=== PATIENT | female | born 1995 | race Caucasian/White ===

== ENCOUNTER → 2022-09-20 10:05 | Outpatient (BNVA) | payer OTHER, SELFPAY | PROVIDERS: PCP Internal Medicine; Visit Provider Nurse Practitioner Family | DX: R51.9 Headache, unspecified (principal); R55 Syncope and collapse; M54.9 Dorsalgia, unspecified; M54.2 Cervicalgia | CPT/HCPCS: 99202 ==

== ENCOUNTER 2023-07-01 15:35 | Outpatient (AMB) | payer OTHER, SELFPAY ==
--- NOTE | 2023-07-01 15:45 | MHC.OFFVIS ---
Intake Vital Signs 07/01/23 15:49 Height 5 ft 2 in Weight 138 lb 6 oz BMI 25.3 BP 102/74 Blood Pressure Location Lt brachial Position Sitting Pulse 85 Pulse Source Pulse Oximeter Pulse Oximetry (%) 100 Oxygen Delivery Method Room Air Intake Visit Reasons: follow up Intake Note: Patient presents for f/u. stills gets headaches x4 a week, feels pressure on back of her head Allergies shellfish derived Allergy (Severe, Verified 07/01/23 15:48) Shortness of Breath pumpkin Allergy (Unknown, Verified 07/01/23 15:48) Unknown lobster Allergy (Unknown, Uncoded 09/20/22 10:21) Hives HPI HPI Comments History of Present Illness Details 27 y/o female presents for follow up of migraine. Pt reports intermittent occipital pressure headache, she can have the headache 4-5 times a week, and some days it lasts all day. These headaches felt like a headband headache- pressure especially with bending over. She gets motion sickness when she massage her back of head. She had episodes of her vision becoming blurry and wavy, it happens right before having headache. She noticed that [place] blinking light was bothersome, and it triggers the headache. An also she gets headache, if she does not drink coffee in the morning too. She uses takes Tylenol, 1000 mg 1-2 times a week to manage the headache. Physical therapy ordered for headache, neck and shoulder muscle tightness, but she has not started PT yet. [facility] Medical History (Updated 09/20/22 @ 11:42 by STACEY Serrato) History of COVID-19 Crohn's disease HELLP syndrome Gestational diabetes Surgical History History of removal of skin mole Family History Mother Asthma Other mast cell activation disorder Maternal Grandfather Cancer of blood vessel Brother Asthma Maternal Aunt Breast cancer Maternal Uncle Leukemia Paternal Grandmother Lung cancer Social History Alcohol intake: current Alcohol intake frequency: holidays/special occasions only Patient Tobacco Use Status: Never used Tobacco Review of Systems Const All systems reviewed & are unremarkable except as noted in HPI and below Physical Exam Vital Signs: Last Vital Signs Pulse 85 07/01/23 15:49 BP 102/74 07/01/23 15:49 Pulse Ox 100 07/01/23 15:49 Oxygen Delivery Method Room Air 07/01/23 15:49 BMI result Body Mass Index 25.3 Const Orientation/consciousness: patient oriented x3 HEENT Other: No palpable scalp tenderness. Head: Yes normocephalic Resp Effort & Inspection: normal respiratory effort and able to speak in complete sentences Back/Spine/Pelvis Other: Bilateral posterior cervical tightness. Left upper back tenderness. Cervical ROM: full Left Spurling: normal Right Spurling: normal. Neuro General: patient oriented x3 Cranial nerves: Yes CN's II-XII intact bilaterally Cognition (Neuro): normal cognition Gait exam (Neuro): Normal gait present Motor exam (neuro): 5/5 motor strength present throughout and Pronator motor function not present Deep tendon reflexes (DTR's): Right triceps reflex intensity grade: 2+, Left triceps reflex intensity grade: 2+, Rt Biceps (C5, C6): 2+, Left biceps reflex intensity grade: 2+, Right brachioradialis reflex intensity grade: 2+, Left brachioradialis reflex intensity grade: 2+, Right patellar reflex intensity grade: 2+ and Left patellar reflex intensity grade: 2+ Coordination: slzcin-[id number] test normal, rgeg-ig-fsli test normal, tandem gait normal and Romberg test negative Pupils: Normal pupillary reactivity/response: bilateral Psych Mental Status: mental status grossly normal Speech and movement: Normal speech and movement present Affect: normal affect Attitude: cooperative Thought process: Normal thought process present Assessment & Plan Assessment & Plan (1) Headache: Comment: TTH versus migrainous headache- ? triggered by EBV infection and dehydration. Code(s): R51.9 - Headache, unspecified (2) Neck pain: Code(s): M54.2 - Cervicalgia Plan Advised patient to start physical therapy. Physical therapy order printed out and handed to patient. Try magnesium glycinate 400 mg qHS and riboflavin 400 mg qAM for migraine prevention. Advised patient to track migraine frequency and intensity. Orders: Orders PT Evaluation and Treatment 07/01/23 M54.2 - Cervicalgia, R51.9 - Headache, unspecified Medications: New riboflavin (vitamin B2) 400 mg PO DAILY 30 days 30 tabs 6RF Coding Level of Care Code Est Pt Level 3 (89882) Diagnoses Headache R51.9 Neck pain M54.2
[2023-07-01 15:49] VITALS: BP 102/74; PULSE 85; O2SAT 100; BMI 25.3
== END 2023-07-01 16:09 | disposition home or self-care (01) ==
PROVIDERS: Absent Provider Nurse Practitioner Family; PCP Internal Medicine; Visit Provider Nurse Practitioner Family
DX: R51.9 Headache, unspecified (principal); M54.2 Cervicalgia
CPT/HCPCS: 99213

== ENCOUNTER → 2023-07-01 15:35 | Outpatient (BNVA) | payer OTHER, SELFPAY | PROVIDERS: Absent Provider Nurse Practitioner Family; PCP Internal Medicine; Visit Provider Nurse Practitioner Family | DX: R51.9 Headache, unspecified (principal); M54.2 Cervicalgia | CPT/HCPCS: 99212 ==

== ENCOUNTER 2024-05-15 11:04 | Emergency (ER) | payer OTHER, SELFPAY ==
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
[2024-05-15 11:05] VITALS: BP 113/63; PULSE 79; RESP 16; TEMP 36.4; O2SAT 99; BMI 24.2
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
[2024-05-15 13:44] VITALS: BP 110/70; PULSE 61; RESP 12; TEMP 36.7; O2SAT 100
[2024-05-15 13:45] VITALS: BP 110/70; PULSE 61; RESP 12; TEMP 36.7; O2SAT 100
== END 2024-05-15 13:45 | disposition home or self-care (01) ==
PROVIDERS: Emergency Provider Student in an Organized Health Care Education/Training Program
DX: S13.4XXA Sprain of ligaments of cervical spine, initial encounter (principal); M54.2 Cervicalgia; R51.9 Headache, unspecified; V43.52XA Car driver injured in collision with other type car in traffic accident, initial encounter; Y93.89 Activity, other specified; Y92.488 Other paved roadways as the place of occurrence of the external cause; Y99.8 Other external cause status
CPT/HCPCS: 70450; 72125; 99282; 99284

== ENCOUNTER 2024-08-28 10:15 | Outpatient (AMB) | payer OTHER, SELFPAY ==
[2024-08-28 10:16] VITALS: BMI 24.2
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
--- OUTSIDE RECORDS SUMMARY | 2024-08-28 12:04 | XMS_ITS | Encounter Summary ---
Author Organization [facility] Address [address] [place] [address] Phone Care Team Providers Care Sign Builder Supervisor Name Role Phone Marcela Neal DO Primary Care Provider [phone] Encounter Details Date Type Department Care Team (Late st Contact Info) Description 05/14/2013 Documentation [facility] [place] [address] [place] [address] Family Medicine, Physician [address] [place], [place] [phone] Social History Tobacco Use Types Packs/Day Years Used Date Smoking Tobacco: Never Assessed Comments Unknown Sex and Gender Information Value Date Recorded Sex Assigned at Not on file Legal Sex Female 5:17 PM EDT Gender Identity Not on file Sexual Orientation Not on file documented as of this encounter Plan of Treatment Not on file documented as of this encounter Visit Diagnoses Not on filedocumented in this encounter Care Teams Sign Builder Supervisor Relationship Specialty Start Date End Date Marcela Neal DO [address] [place] [address] PCP - General 12/31/16 08/04/22 documented as of this encounter
--- OUTSIDE RECORDS SUMMARY | 2024-08-28 12:04 | XMS_ITS | Encounter Summary ---
Author Organization [facility] Address [address] [place] [address] Phone Care Team Providers Care Aeronautical Drafter Name Role Phone Marcela Neal DO Primary Care Provider [phone] Encounter Details Date Type Department Care Team (Late st Contact Info) Description 04/30/2013 Documentation [facility] [place] [address] [place] [address] Family Medicine, Physician [address] [place], [place] [phone] Social History Tobacco Use Types Packs/Day Years [...] on filedocumented in this encounter Care Teams Aeronautical Drafter Relationship Specialty Start Date End Date Marcela Neal DO [address] [place] [address] PCP - General 12/31/16 08/04/22 documented as of this encounter
--- OUTSIDE RECORDS SUMMARY | 2024-08-28 12:04 | XMS_ITS | Encounter Summary ---
Author Organization [facility] Address [address] [place] [address] Phone Care Team Providers Care Field Clinical Engineer Name Role Phone Marcela Neal DO Primary Care Provider [phone] Encounter Details Date Type Department Care Team (Late st Contact Info) Description 03/21/2013 Documentation [facility] [place] [address] [place] [address] Family Medicine, Physician [address] [place], [place] [phone] Social History Tobacco Use Types Packs/Day Years [...] on filedocumented in this encounter Care Teams Field Clinical Engineer Relationship Specialty Start Date End Date Marcela Neal DO [address] [place] [address] PCP - General 12/31/16 08/04/22 documented as of this encounter
--- OUTSIDE RECORDS SUMMARY | 2024-08-28 12:04 | XMS_ITS | Clinical Summary ---
Author Organization [facility] Address [address] [place] [address] Care Team Providers Care Core Drill Operator Helper Name Role Phone Luca Nguyen MD Primary Care Pr ovider Allergies Active Allergy Reactions Criticality Noted Date Comments Medroxyprogesterone Acetate 02/29/20 23 Pumpkin Flavoring Agent (Non-Screening) 02/28/2023 Medications No known medications Active Problems No known active problems Family History Medical History Relation Name Comments Cancer Maternal Grandfather Cancer Paternal Grandmother Relation Name Status Comments Maternal Grandfather Paternal Grandmother Social History Tobacco Use Types Packs/Day Years Used Date Smoking Tobacco: Never Smokeless Tobacco: Never Tobacco Cessation:Counseling Given: Not Answered Alcohol Use Standard Drinks/Week Comments Yes 0 (1 standard drink = 0.6 oz pur e alcohol) SOCIAL Sex and Gender Information Value Date Recorded Sex Assigned at Not on file Gender Identity Not on file Sexual Orientation Not on file Job Start Date Occupation Industry Not on file Not on file Not on file Last Filed Vital Signs Vital Sign Reading Time Taken Comments Blood Pressure 107/73 02/28/2023 3:11 PM EDT Pulse 60 02/28/2023 3:11 PM EDT Temperature 37.1 ??C (98.7 ??F) 02/28/2023 3:11 PM ED T Respiratory Rate - - Oxygen Saturation 100% 02/28/2023 3:11 PM EDT Inhaled Oxygen Concentration - - Weight 63.1 kg (139 lb 3.2 oz) 02/28/2023 3:11 P M EDT Height 157.5 cm (5' 2 ) 02/28/2023 3:11 PM EDT Body Mass Index 25.46 02/28/2023 3:11 PM EDT Plan of Treatment Health Maintenance Due Date Last Done Comments Hepatitis C Screening 1995 Hepatitis B Vaccines (3 of 3 - 3-dose series) 09/18/1996 07/24/1996, 02/20/1996 Depression Screening 2007 Preventative Health Evaluation 12/18/2013 Cervical Cancer Screening (Pap Smear) 12/18/2016 COVID-19 Vaccine ( season) 2024 06/20/2021, 05/30/2021 Influenza Vaccine (#1) 2024 6, 04/07/2016, 03/26/2004, Additional history exists DTap / Tdap / Td (9 - Td or Tdap) 02/05/2029 02/05/2019, 11/04/2015, 01/31/2008, Additional history exists Pneumococcal Vaccine Aged Out No long er eligible based on patient's age to complete this topic RSV Ped < 20 months Aged Out No longe r eligible based on patient's age to complete this topic Care Teams Core Drill Operator Helper Relationship Specialty Start Date End Date Luca Nguyen MD [address] [place] [address] PCP - General 12/24/22
--- OUTSIDE RECORDS SUMMARY | 2024-08-28 12:04 | XMS_ITS | Encounter Summary ---
Author Organization [facility] Address [address] [place] [address] Phone Care Team Providers Care Industrial Engineering Intern Name Role Phone Marcela Neal DO Primary Care Provider [phone] Encounter Details Date Type Department Care Team (Late st Contact Info) Description 09/25/2013 Documentation [facility] [place] [address] [place] [address] Family Medicine, Physician [address] [place], [place] [phone] Social History Tobacco Use Types Packs/Day Years [...] on filedocumented in this encounter Care Teams Industrial Engineering Intern Relationship Specialty Start Date End Date Marcela Neal DO [address] [place] [address] PCP - General 12/31/16 08/04/22 documented as of this encounter
--- OUTSIDE RECORDS SUMMARY | 2024-08-28 12:04 | XMS_ITS | Encounter Summary ---
Author Organization [facility] Address [address] [place] [address] Phone Care Team Providers Care Judicial Clerk Name Role Phone Marcela Neal DO Primary Care Provider [phone] Encounter Details Date Type Department Care Team (Late st Contact Info) Description 11/16/2011 Documentation [facility] [place] [address] [place] [address] Family Medicine, Physician [address] [place], [place] [phone] Social History Tobacco Use Types Packs/Day Years [...] on filedocumented in this encounter Care Teams Judicial Clerk Relationship Specialty Start Date End Date Marcela Neal DO [address] [place] [address] PCP - General 12/31/16 08/04/22 documented as of this encounter
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
--- OUTSIDE RECORDS SUMMARY | 2024-08-28 12:04 | XMS_ITS | Encounter Summary ---
Author Organization [facility] Address [address] [place] [address] Phone Care Team Providers Care Data Architect Name Role Phone Marcela Neal DO Primary Care Provider [phone] Encounter Details Date Type Department Care Team (Late st Contact Info) Description 06/20/2013 Documentation [facility] [place] [address] [place] [address] Family Medicine, Physician [address] [place], [place] [phone] Social History Tobacco Use Types Packs/Day Years [...] on filedocumented in this encounter Care Teams Data Architect Relationship Specialty Start Date End Date Marcela Neal DO [address] [place] [address] PCP - General 12/31/16 08/04/22 documented as of this encounter
--- OUTSIDE RECORDS SUMMARY | 2024-08-28 12:04 | XMS_ITS | Encounter Summary ---
Author Organization [facility] Address [address] [place] [address] Phone Care Team Providers Care Yield Analyst Name Role Phone Marcela Neal DO Primary Care Provider [phone] Encounter Details Date Type Department Care Team (Late st Contact Info) Description 06/20/2013 Documentation [facility] [place] [address] [place] [address] Family Medicine, Physician [address] [place], [place] [phone] Social History Tobacco Use Types Packs/Day Years [...] on filedocumented in this encounter Care Teams Yield Analyst Relationship Specialty Start Date End Date Marcela Neal DO [address] [place] [address] PCP - General 12/31/16 08/04/22 documented as of this encounter
--- OUTSIDE RECORDS SUMMARY | 2024-08-28 12:04 | XMS_ITS | Encounter Summary ---
Author Organization [facility] Address [address] [place] [address] Phone Care Team Providers Care Employment Specialist/Program Manager Name Role Phone Marcela Neal DO Primary Care Provider [phone] Encounter Details Date Type Department Care Team (Late st Contact Info) Description 08/28/2012 Documentation [facility] [place] Family Medicine [address] [place] [address] Family Medicine, Physician [address] [place], [place] [phone] Social History Tobacco Use Types Packs/Day Years [...] on filedocumented in this encounter Care Teams Employment Specialist/Program Manager Relationship Specialty Start Date End Date Marcela Neal DO [address] [place] [address] PCP - General 12/31/16 08/04/22 documented as of this encounter
--- OUTSIDE RECORDS SUMMARY | 2024-08-28 12:04 | XMS_ITS | Clinical Summary ---
Author Organization [facility] Address [address] [place] [address] Phone Care Team Providers Care Button Tacker Name Role Phone Unavailable Primary Care Provider Unavailabl e Immunizations Immunization Administration Dates Next Due DTP 05/31/1997, 7,04/30/1996,02/19 DTaP 5 12/21/1999 HPV, Quadrivalent 03/05/2011,05/20/2010,02/28/20 10 Hep A, Adult 05/05/2015 Hep A, ped/adol 05/01/2014 Hep B, ped/adol 07/24/1996,02/20/1996 Hib (PRP-T) 05/31/1997, 7,04/30/1996,02/19 IPV 12/21/1999 Influenza, injectable, quadr ivalent, preservative free 04/07/2016 Influenza, injectable, trivalent 03/26/2004,04/22,04/09/2002 MMR 12/21/1999,01/10/1997 Meningococcal Conj (Menactra) MCV4P 05/01/2014,0 01/31/2008 OPV 07/24/1996,04/30/1996,02/20/1996 Td (adult) (Tenivac), 5 Lf t etanus toxoid, PF, adsorbed 11/04/2015 Tdap 01/31/2008 Varicella 05/23/1996 Family History Relation Name Status Comments Brother Alive Brother: Alive and well Father Father: Headach e,cluster Mother Mother: Asthma, Allergies Other No family histo ry of *Thrombophilia Social History Tobacco Use Types Packs/Day Years Used Date Smoking Tobacco: Never Comments:Never smoker Comments Unknown Sex and Gender Information Value Date Recorded Sex Assigned at Not on file Legal Sex Female 5:17 PM EDT Gender Identity Not on file Sexual Orientation Not on file Last Filed Vital Signs Vital Sign Reading Time Taken Comments Blood Pressure 106/62 10/26/2016 12:00 AM EDT Pulse 75 06/02/2016 12:00 AM EST Temperature 37 ??C (98.6 ??F) 10/28/2016 12:00 AM EDT Respiratory Rate - - Oxygen Saturation - - Inhaled Oxygen Concentration - - Weight 54.4 kg (120 lb) 10/28/2016 12:00 AM EDT Height 159.4 cm (5' 2.75 ) 06/02/2016 12:[address] Body Mass Index 21.43 06/02/2016 12:00 AM EST Plan of Treatment Health Maintenance Due Date Last Done Comments Hepatitis B Vaccines (3 of 3 - 3-dose series) 09/18/1996 07/24/1996, 02/20/1996 Varicella Vaccines (1 of 2 - 13+ 2-dose series) 12/18/2008 05/23/1996 Influenza Vaccines (#1) 2023 04/07/20 16, 03/26/2004, 05/09/2002, Additional history exists COVID-19 Vaccine (2023- season) 2024 DTaP,Tdap,and Td Vaccines (8 - Td or Tdap) 11/03/2025 11/04/2015, 01/31/2008, 12/21/1999, Additional history exists HIB Vaccines Completed 05/31/1997, 08/1996, 04/30/1996, Additional history exists IPV Vaccines Completed 12/21/1999, 08/1996, 04/30/1996, Additional history exists MMR Vaccines Completed 12/21/1999, 01/10/1997 HPV Vaccines Completed 03/05/2011, 04/23, 02/27/2010 Meningococcal Vaccine Completed 05/01/2014, 008 Hepatitis A Vaccines Completed 05/05/2015, 05/01/20 14 Men B Vaccine Aged Out No longer elig ible based on patient's age to complete this topic Pneumococcal Vaccine Aged Out No long er eligible based on patient's age to complete this topic Procedures * Due to [place] state law, this organization might not be sharing sensitive test results. Procedure Name Priority Date/Time Associated Diagnosis Comments CHLAMYDIA AND GONORRHEA, AMPLIFIED Routine 06/03/2016 2:05 PM EST from Last 3 Months or Most Recently Relevant to Health Maintenance Results * Due to [place] state law, this organization might not be sharing sensitive test results. * Chlamydia and Gonorrhoea, Amplified (06/03/2016 2:05 PM EST) URINE CHLAMYDIA AMP PROBE NEGATIVE [facility] Comment: No Chlamydia Trachomatis RNA detected in this patient's sample (REFERENCE RANGE/NORMAL VALUE: NOT DETECTED) URINE GC AMP PROBE NEGATIVE [facility] Comment: No Neisseria Gonorrhoeae RNA detected in this patient's sample (REFERENCE RANGE/NORMAL VALUE: NOT DETECTED) NOTE: This test uses network program manager-mediated amplification method to detect rRNA from C.Trachomatis and N.Gonorrhoeae. A negative result does not preclude infection. In the case of a negative urine result, testing of an endocervical(female) or urethral(male) specimen is recommended if there is high clinical suspicion of infection. The performance characteristics of this test have not been evaluated in children. The Aptima Combo2 assay is not intended for the evaluation of suspected sexual abuse or for other medico-legal indications. The ordering provider should assess if the patient had consensual sex without risk of sexual abuse. Consult the [facility] if needed. Contact phone number . Therapeutic failure or success cannot be determined with the Aptima Combo2 assay since nucleic acid may persist following appropriate antimicrobial therapy. The Centers for Disease Control and Prevention (CDC) recommends confirmatory retesting using culture or a different nucleic acid amplification test when positive results occur, if indicated. Testing performed or reported by [facility], a Service of [facility], [facility] [place] [address] CLIA ??[id number] Francis Mendez MD, PhD, Ram Press Operator 06/03/2016 2:05 PM EST Narrative [facility] - 06/03/2016 2:05 PM EST URINE CHLAMYDIA GC AMP PROBE us Marcela Neal DO LAB MICROBIOLOGY - GENERAL ORDER MARSHAL Final Result [facility] [address] [place] [address], from Last 3 Months or Most Recently Relevant to Health Maintenance Insurance [facility]
--- OUTSIDE RECORDS SUMMARY | 2024-08-28 12:04 | XMS_ITS | Encounter Summary ---
Author Organization [facility] Address [address] [place] [address] Phone Care Team Providers Care Employment Case Manager Name Role Phone Marcela Neal DO Primary Care Provider [phone] Encounter Details Date Type Department Care Team (Late st Contact Info) Description 01/06/2017 Conversion Encounter [facility] [address] [place] [address] Social History Tobacco Use Types Packs/Day Years [...] filedocumented in this encounter Care Teams Employment Case Manager Relationship Specialty Start Date End Date Marcela Neal DO [address] [place] [address] PCP - General 12/31/16 08/04/22 documented as of this encounter
--- OUTSIDE RECORDS SUMMARY | 2024-08-28 12:04 | XMS_ITS | Encounter Summary ---
Author Organization [facility] Address [address] [place] [address] Phone Care Team Providers Care Research Chief Engineer Name Role Phone Marcela Neal DO Primary Care Provider [phone] Encounter Details Date Type Department Care Team (Late st Contact Info) Description 09/21/2013 Documentation [facility] [place] Family Medicine [address] [place] [address] Family Medicine, Physician [address] [place], [place] [phone] Social History Tobacco Use Types Packs/Day Years [...] on filedocumented in this encounter Care Teams Research Chief Engineer Relationship Specialty Start Date End Date Marcela Neal DO [address] [place] [address] PCP - General 12/31/16 08/04/22 documented as of this encounter
--- OUTSIDE RECORDS SUMMARY | 2024-08-28 12:04 | XMS_ITS | Encounter Summary ---
Author Organization [facility] Address [address] [place] [address] Phone Care Team Providers Care Svp Innovation Partnerships Name Role Phone Marcela Neal DO Primary Care Provider [phone] Encounter Details Date Type Department Care Team (Late st Contact Info) Description 03/27/2013 Documentation [facility] [place] [address] [place] [address] Family Medicine, Physician [address] [place], [place] [phone] Social History Tobacco Use Types Packs/Day Years [...] on filedocumented in this encounter Care Teams [employer] Relationship Specialty Start Date End Date Marcela Neal DO [address] [place] [phone] PCP - General 12/31/16 08/04/22 documented as of this encounter
--- OUTSIDE RECORDS SUMMARY | 2024-08-28 12:04 | XMS_ITS | Encounter Summary ---
Author Organization [facility] Address [address] [place] [address] Phone Care Team Providers Care Medical Videographer Name Role Phone Marcela Neal DO Primary Care Provider [phone] Encounter Details Date Type Department Care Team (Late st Contact Info) Description 06/30/2015 Documentation [facility] [place] [address] [place] [address] Family Medicine, Physician [address] [place], [place] [phone] Social History Tobacco Use Types Packs/Day Years [...] on filedocumented in this encounter Care Teams Medical Videographer Relationship Specialty Start Date End Date Marcela Neal DO [address] [place] [address] PCP - General 12/31/16 08/04/22 documented as of this encounter
--- OUTSIDE RECORDS SUMMARY | 2024-08-28 12:04 | XMS_ITS | Encounter Summary ---
Author Organization [facility] Address [address] [place] [address] Phone Care Team Providers Care Building Energy Consultant Name Role Phone Marcela Neal DO Primary Care Provider [phone] Encounter Details Date Type Department Care Team (Late st Contact Info) Description 05/01/2013 Documentation [facility] [place] Family Medicine [address] [place] [address] Family Medicine, Physician [address] [place], [place] [phone] Social History Tobacco Use Types Packs/Day Years [...] on filedocumented in this encounter Care Teams Building Energy Consultant Relationship Specialty Start Date End Date Marcela Neal DO [address] [place] [address] PCP - General 12/31/16 08/04/22 documented as of this encounter
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
--- OUTSIDE RECORDS SUMMARY | 2024-08-28 12:05 | XMS_ITS | Encounter Summary ---
Author Organization [facility] Address [address] [place] [address] Phone Care Team Providers Care Commercial Loan Collection Officer Name Role Phone Marcela Neal DO Primary Care Provider [phone] Encounter Details Date Type Department Care Team (Late st Contact Info) Description 03/08/2014 [place]ation [facility] [place] [address] [place] [address] Family Medicine, Physician [address] [place], [place] [phone] Social History Tobacco Use Types Packs/Day Years [...] on filedocumented in this encounter Care Teams Commercial Loan Collection Officer Relationship Specialty Start Date End Date Marcela Neal DO [address] [place] [phone] PCP - General 12/31/16 08/04/22 documented as of this encounter
--- OUTSIDE RECORDS SUMMARY | 2024-08-28 12:05 | XMS_ITS | Encounter Summary ---
Author Organization [facility] Address [address] [place] [address] Phone Care Team Providers Care Air Export Agent Name Role Phone Marcela Neal DO Primary Care Provider [phone] Encounter Details Date Type Department Care Team (Late st Contact Info) Description 07/19/2014 Documentation [facility] [place] [address] [place] [address] Family Medicine, Physician [address] [place], [place] [phone] Social History Tobacco Use Types Packs/Day Years [...] on filedocumented in this encounter Care Teams Air Export Agent Relationship Specialty Start Date End Date Marcela Neal DO [address] [place] [address] PCP - General 12/31/16 08/04/22 documented as of this encounter
--- OUTSIDE RECORDS SUMMARY | 2024-08-28 12:05 | XMS_ITS | Encounter Summary ---
Author Organization [facility] Address [address] [place] [address] Phone Care Team Providers Care Physical Security Specialist Name Role Phone Marcela Neal DO Primary Care Provider [phone] Encounter Details Date Type Department Care Team (Late st Contact Info) Description 09/01/[address] [facility] [place] [address] [place] [address] Family Medicine, Physician [address] [place], [place] [phone] Social History Tobacco Use Types Packs/Day Years [...] on filedocumented in this encounter Care Teams Physical Security Specialist Relationship Specialty Start Date End Date Marcela Neal DO [address] [place] [place] [address] PCP - General 12/31/16 08/04/22 documented as of this encounter
--- OUTSIDE RECORDS SUMMARY | 2024-08-28 12:05 | XMS_ITS | Encounter Summary ---
Author Organization [facility] Address [address] [place] [address] Phone Care Team Providers Care Assistant Professor Of Drama Name Role Phone Marcela Neal DO Primary Care Provider [phone] Encounter Details Date Type Department Care Team (Late st Contact Info) Description 05/11/2011 Documentation [facility] [place] [address] [place] [address] Family Medicine, Physician [address] [place], [place] [phone] Social History Tobacco Use Types Packs/Day Years [...] on filedocumented in this encounter Care Teams Assistant Professor Of Drama Relationship Specialty Start Date End Date Marcela Neal DO [address] [place] [address] PCP - General 12/31/16 08/04/22 documented as of this encounter
--- OUTSIDE RECORDS SUMMARY | 2024-08-28 12:05 | XMS_ITS | Encounter Summary ---
Author Organization [facility] Address [address] [place] [address] Phone Care Team Providers Care Matting Press Tender Name Role Phone Marcela Neal DO Primary Care Provider Encounter Details Date Type Department Care Team (Late st Contact Info) Description 02/23/2010 Documentation [facility] [place] Medicine [address] [place] [address] Family Medicine, Physician [address] [place], [place] [phone] Social History Tobacco Use Types Packs/Day Years [...] on filedocumented in this encounter Care Teams Matting Press Tender Relationship Specialty Start Date End Date Marcela Neal DO [address] [place] [address] PCP - General 12/31/16 08/04/22 documented as of this encounter
== END 2024-08-28 11:10 | disposition home or self-care (01) ==
LOC: HO.HOS 10:15
PROVIDERS: Visit Provider Physical Medicine & Rehabilitation
DX: G44.86 Cervicogenic headache (principal); M79.18 Myalgia, other site; Z04.3 Encounter for examination and observation following other accident
CPT/HCPCS: 99204

== ENCOUNTER → 2024-08-28 10:15 | Outpatient (BNVA) | payer OTHER, SELFPAY | PROVIDERS: Visit Provider Physical Medicine & Rehabilitation ==

== ENCOUNTER 2024-08-28 10:50 | Outpatient (REF) | payer OTHER, SELFPAY ==
--- OUTSIDE RECORDS SUMMARY | 2024-08-28 13:10 | XMS_ITS | Encounter Summary ---
Author Organization [facility] Address [address] [place] [address] Phone Care Team Providers Care Site Reliability Engineer Name Role Phone Marcela Neal DO Primary Care Provider [phone] Encounter Details Date Type Department Care Team (Late st Contact Info) Description 09/21/2013 Documentation [facility] [place] [address] [place] [address] Family Medicine, Physician [address] [place], [place] [phone] Social History Tobacco Use Types Packs/Day Years [...] on filedocumented in this encounter Care Teams Site Reliability Engineer Relationship Specialty Start Date End Date Marcela Neal DO [address] [place] [phone] PCP - General 12/31/16 08/04/22 documented as of this encounter
--- OUTSIDE RECORDS SUMMARY | 2024-08-28 13:10 | XMS_ITS | Encounter Summary ---
Author Organization [facility] Address [address] [place] [address] Phone Care Team Providers Care Trim Setter Name Role Phone Marcela Neal DO Primary Care Provider [phone] Encounter Details Date Type Department Care Team (Late st Contact Info) Description 11/16/2011 Documentation [facility] [place] [address] [place] [address] Family Medicine, Physician [address] [place], [place] [phone] Social History Tobacco Use Types Packs/Day Years [...] on filedocumented in this encounter Care Teams Trim Setter Relationship Specialty Start Date End Date Marcela Neal DO [address] [place] [address] PCP - General 12/31/16 08/04/22 documented as of this encounter
--- OUTSIDE RECORDS SUMMARY | 2024-08-28 13:10 | XMS_ITS | Encounter Summary ---
Author Organization [facility] Address [address] [place] [address] Phone Care Team Providers Care Carbon Printer Name Role Phone Marcela Neal DO Primary Care Provider [phone] Encounter Details Date Type Department Care Team (Late st Contact Info) Description 08/28/2012 Documentation [facility] [place] Family Medicine [address] [place] [address] Family Medicine, Physician [address] [place], [place] [phone] Social History Tobacco Use Types Packs/Day Years [...] on filedocumented in this encounter Care Teams Carbon Printer Relationship Specialty Start Date End Date Marcela Neal DO [address] [place] [address] PCP - General 12/31/16 08/04/22 documented as of this encounter
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
--- OUTSIDE RECORDS SUMMARY | 2024-08-28 13:11 | XMS_ITS | Encounter Summary ---
Author Organization [facility] Address [address] [place] [address] Phone Care Team Providers Care Distance Learning Coordinator Name Role Phone Marcela Neal DO Primary Care Provider [phone] Encounter Details Date Type Department Care Team (Late st Contact Info) Description 09/25/2013 Documentation [facility] [place] Family Medicine [address] [place] [address] Family Medicine, Physician [address] [place], [place] [phone] Social History Tobacco Use Types Packs/Day Years [...] on filedocumented in this encounter Care Teams Distance Learning Coordinator Relationship Specialty Start Date End Date Marcela Neal DO [address] [place] [address] PCP - General 12/31/16 08/04/22 documented as of this encounter
--- OUTSIDE RECORDS SUMMARY | 2024-08-28 13:11 | XMS_ITS | Encounter Summary ---
Author Organization [facility] Address [address] [place] [address] Phone Care Team Providers Care Senior Front End Developer Name Role Phone Marcela Neal DO Primary Care Provider [phone] Encounter Details Date Type Department Care Team (Late st Contact Info) Description 09/01/2011 Documentation [facility] [place] Family Medicine [address] [place] [address] Family Medicine, Physician [address] [place], [place] [phone] Social History Tobacco Use Types Packs/Day Years [...] on filedocumented in this encounter Care Teams Senior Front End Developer Relationship Specialty Start Date End Date Marcela Neal DO [address] [place] [address] PCP - General 12/31/16 08/04/22 documented as of this encounter
--- OUTSIDE RECORDS SUMMARY | 2024-08-28 13:11 | XMS_ITS | Encounter Summary ---
Author Organization [facility] Address [address] [place] [address] Phone Care Team Providers Care Warehouse Man Name Role Phone Marcela Neal DO Primary Care Provider [phone] Encounter Details Date Type Department Care Team (Late st Contact Info) Description 05/14/2013 Documentation [facility] [place] [facility] Family Medicine [address] [place] [address] Family Medicine, Physician [address] [place], [place] [phone] Social History Tobacco Use Types Packs/Day Years [...] on filedocumented in this encounter Care Teams Warehouse Man Relationship Specialty Start Date End Date Marcela Neal DO [address] [place] [address] PCP - General 12/31/16 08/04/22 documented as of this encounter
--- OUTSIDE RECORDS SUMMARY | 2024-08-28 13:11 | XMS_ITS | Encounter Summary ---
Author Organization [facility] Address [address] [place] [address] Phone Care Team Providers Care Driver'S Education Instructor Name Role Phone Marcela Neal DO Primary Care Provider [phone] Encounter Details Date Type Department Care Team (Late st Contact Info) Description 06/30/2015 [place] [facility] [place] [address] [place] [address] Family Medicine, Physician [address] [place], [place] [phone] Social History Tobacco Use Types Packs/Day Years [...] on filedocumented in this encounter Care Teams Driver'S Education Instructor Relationship Specialty Start Date End Date Marcela Neal DO [address] [place] [address] PCP - General 12/31/16 08/04/22 documented as of this encounter
--- OUTSIDE RECORDS SUMMARY | 2024-08-28 13:11 | XMS_ITS | Encounter Summary ---
Author Organization [facility] Address [address] [place] [address] Phone Care Team Providers Care Mri Supervisor Name Role Phone Marcela Neal DO Primary Care Provider [phone] Encounter Details Date Type Department Care Team (Late st Contact Info) Description 03/27/2013 Documentation [facility] [place] [address] [place] [address] Family Medicine, Physician [address] [place], [place] [phone] Social History Tobacco Use Types Packs/Day Years [...] on filedocumented in this encounter Care Teams Mri Supervisor Relationship Specialty Start Date End Date Marcela Neal DO [address] [place] [address] PCP - General 12/31/16 08/04/22 documented as of this encounter
--- OUTSIDE RECORDS SUMMARY | 2024-08-28 13:11 | XMS_ITS | Clinical Summary ---
Author Organization [facility] Address [address] [place] [address] Care Team Providers Care Real Estate Appraiser Name Role Phone Luca Nguyen MD Primary [...] age to complete this topic Care Teams Real Estate Appraiser Relationship Specialty Start Date End Date Luca Nguyen MD [address] [place] [address] PCP - General 12/24/22
--- OUTSIDE RECORDS SUMMARY | 2024-08-28 13:11 | XMS_ITS | Encounter Summary ---
Author Organization [facility] Address [address] [place] [address] Phone Care Team Providers Care Program Director Group Work Name Role Phone Marcela Neal DO Primary Care Provider [phone] Encounter Details Date Type Department Care Team (Late st Contact Info) Description 06/20/2013 Documentation [facility] [place] [address] [place] [address] Family Medicine, Physician [address] [place], [place] [phone] Social History Tobacco Use Types Packs/Day Years [...] on filedocumented in this encounter Care Teams Program Director Group Work Relationship Specialty Start Date End Date Marcela Neal DO [address] [place] [address] PCP - General 12/31/16 08/04/22 documented as of this encounter
--- OUTSIDE RECORDS SUMMARY | 2024-08-28 13:11 | XMS_ITS | Encounter Summary ---
Author Organization [facility] Address [address] [place] [address] Phone Care Team Providers Care Letter Sorting Machine Operator Name Role Phone Marcela Neal DO Primary Care Provider [phone] Encounter Details Date Type Department Care Team (Late st Contact Info) Description 05/11/2011 Documentation [facility] [address] [place] [address] Family Medicine, Physician [address] [place], [place] [phone] Social History Tobacco Use Types Packs/Day Years [...] on filedocumented in this encounter Care Teams Letter Sorting Machine Operator Relationship Specialty Start Date End Date Marcela Neal DO [address] [place] [address] PCP - General 12/31/16 08/04/22 documented as of this encounter
--- OUTSIDE RECORDS SUMMARY | 2024-08-28 13:11 | XMS_ITS | Encounter Summary ---
Author Organization [facility] Address [address] [place] [address] Care Team Providers Care Manifest/Order Organizer Print Orders Name Role Phone Luca Nguyen MD Primary Care Pr ovider Reason for Referral * Consultation (Routine) - Closed Specialty Diagnoses / Procedures Referred By Contact Referred To Contact Physical Medicine and Rehabilitation Diagnoses Neck pain Veronica Robert PA [address] [place] [address] Phone: tel: fax: Tania Corral MD [address] [place] [phone] Phone: tel:[phone] Referral ID Status Reason Start Date Expiration Date V isits Requested Visits Authorized [id number] Closed Specialty Services Required 08/23/2024 08/23/2025 1 1 Reason for Visit * Reason Onset Date Comments Referral 08/23/2024 Encounter Details Date Type Department Care Team (Late st Contact Info) Description 08/23/2024 Telephone Adult Medicine [address] [address] Veronica Robert PA [address] [place] [address] Referral Social History Tobacco Use Types Packs/Day [...] Description 08/30/2024 3:30 PM EDT Treatment Outpatient [address] [phone] Stephane Kamara PT Scheduled Referrals Name Type [...] Cervicalgia documented in this encounter Care Teams Manifest/Order Organizer Print Orders Relationship Specialty Start Date End Date Luca Nguyen MD [address] [place] [address] PCP - General 12/24/22 documented as of this encounter
--- OUTSIDE RECORDS SUMMARY | 2024-08-28 13:11 | XMS_ITS | Encounter Summary ---
Author Organization [facility] Address [address] [place] [address] Phone Care Team Providers Care Centrifugal Casting Machine Operator Name Role Phone Marcela Neal DO Primary Care Provider [phone] Encounter Details Date Type Department Care Team (Late st Contact Info) Description 01/06/2017 Conversion Encounter [facility] [address] [place] [address] Social History Tobacco Use Types Packs/Day Years [...] on filedocumented in this encounter Care Teams Centrifugal Casting Machine Operator Relationship Specialty Start Date End Date Marcela Neal DO [address] [place] [address] PCP - General 12/31/16 08/04/22 documented as of this encounter
--- OUTSIDE RECORDS SUMMARY | 2024-08-28 13:11 | XMS_ITS | Clinical Summary ---
Author Organization [facility] Address [address] [place] [address] Phone Care Team Providers Care Dog Warden Name Role Phone Unavailable Primary Care Provider [...] complete this topic Procedures * Due to [place] state law, this organization might not be sharing sensitive test results. Procedure Name Priority Date/Time Associated Diagnosis Comments CHLAMYDIA AND GONORRHEA, AMPLIFIED Routine 06/03/2016 2:05 PM EST from Last 3 Months or Most Recently Relevant to Health Maintenance Results * Due to [place] state law, this organization might not be sharing sensitive test results. * Chlamydia and Gonorrhoea, Amplified (06/03/2016 2:05 PM EST) URINE CHLAMYDIA AMP PROBE NEGATIVE [facility] Comment: No Chlamydia Trachomatis RNA detected in this patient's sample (REFERENCE RANGE/NORMAL VALUE: NOT DETECTED) URINE GC AMP PROBE NEGATIVE [facility] Comment: No Neisseria Gonorrhoeae RNA detected in this patient's sample (REFERENCE RANGE/NORMAL VALUE: NOT DETECTED) NOTE: This test uses resource recovery specialist-mediated amplification method to detect rRNA from C.Trachomatis [...] without risk of sexual abuse. Consult the [facility] if needed. Contact phone number . Therapeutic failure or success cannot be determined with the Aptima Combo2 assay since nucleic acid may persist following appropriate antimicrobial therapy. The Centers for Disease Control and Prevention (CDC) recommends confirmatory retesting using culture or a different nucleic acid amplification test when positive results occur, if indicated. Testing performed or reported by [facility], a Service of [facility], [facility] [place] [address] CLIA ??[id number] Francis Mendez MD, PhD, Manager Personnel Selection 06/03/2016 2:05 PM EST Narrative [facility] - 06/03/2016 2:05 PM EST URINE CHLAMYDIA GC AMP PROBE us Marcela Neal DO LAB MICROBIOLOGY - GENERAL ORDER MARSHAL Final Result [facility] [address] [place] [address], from Last 3 Months or Most Recently Relevant to Health Maintenance Insurance [facility]
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
--- OUTSIDE RECORDS SUMMARY | 2024-08-28 13:11 | XMS_ITS | Encounter Summary ---
Author Organization [facility] Address [address] [place] [address] Phone Care Team Providers Care Experimental Outboard Motors Mechanic Name Role Phone Marcela Neal DO Primary Care Provider [phone] Encounter Details Date Type Department Care Team (Late st Contact Info) Description 04/30/2013 Documentation [facility] [place] Family Medicine [address] [place] [address] Family Medicine, Physician [address] [place], [place] [phone] Social History Tobacco Use Types Packs/Day Years [...] on filedocumented in this encounter Care Teams Experimental Outboard Motors Mechanic Relationship Specialty Start Date End Date Marcela Neal DO [address] [place] [address] PCP - General 12/31/16 08/04/22 documented as of this encounter
--- OUTSIDE RECORDS SUMMARY | 2024-08-28 13:11 | XMS_ITS | Encounter Summary ---
Author Organization [facility] Address [address] [place] [address] Phone Care Team Providers Care Retention Manager Name Role Phone Marcela Neal DO Primary Care Provider [phone] Encounter Details Date Type Department Care Team (Late st Contact Info) Description 07/19/2014 Documentation [facility] [place] [address] [place] [address] Family Medicine, Physician [address] [place], [place] [phone] Social History Tobacco Use Types Packs/Day Years [...] on filedocumented in this encounter Care Teams Retention Manager Relationship Specialty Start Date End Date Marcela Neal DO [address] [place] [address] PCP - General 12/31/16 08/04/22 documented as of this encounter
--- OUTSIDE RECORDS SUMMARY | 2024-08-28 13:11 | XMS_ITS | Encounter Summary ---
Author Organization [facility] Address [address] [place] [address] Phone Care Team Providers Care Winder Fixer Name Role Phone Marcela Neal DO Primary Care Provider [phone] Encounter Details Date Type Department Care Team (Late st Contact Info) Description 03/21/2013 Documentation [facility] [facility] [place] [address] [place] [address] Family Medicine, Physician [address] [place], [place] [phone] Social History Tobacco Use Types Packs/Day Years [...] on filedocumented in this encounter Care Teams Winder Fixer Relationship Specialty Start Date End Date Marcela Neal DO [address] [place] [address] PCP - General 12/31/16 08/04/22 documented as of this encounter
--- OUTSIDE RECORDS SUMMARY | 2024-08-28 13:11 | XMS_ITS | Encounter Summary ---
Author Organization [facility] Address [address] [place] [address] Phone Care Team Providers Care Luster Applicator Name Role Phone Marcela Neal DO Primary Care Provider [phone] Encounter Details Date Type Department Care Team (Late st Contact Info) Description 03/08/2014 Documentation [facility] [place] Family Medicine [address] [place] [address] Family Medicine, Physician [address] [place], [place] [phone] Social History Tobacco Use Types Packs/Day Years [...] on filedocumented in this encounter Care Teams Luster Applicator Relationship Specialty Start Date End Date Marcela Neal DO [address] [place] [address] PCP - General 12/31/16 08/04/22 documented as of this encounter
--- OUTSIDE RECORDS SUMMARY | 2024-08-28 13:11 | XMS_ITS | Encounter Summary ---
Author Organization [facility] Address [address] [place] [address] Phone Care Team Providers Care Bakery Demonstrator Name Role Phone Marcela Neal DO Primary Care Provider [phone] Encounter Details Date Type Department Care Team (Late st Contact Info) Description 05/01/2013 Documentation [facility] [place] Family Medicine [address] [place] [address] Family Medicine, Physician [address] [place], [place] [phone] Social History Tobacco Use Types Packs/Day Years [...] on filedocumented in this encounter Care Teams Bakery Demonstrator Relationship Specialty Start Date End Date Marcela Neal DO [address] [place] [address] PCP - General 12/31/16 08/04/22 documented as of this encounter
--- OUTSIDE RECORDS SUMMARY | 2024-08-28 13:11 | XMS_ITS | Encounter Summary ---
Author Organization [facility] Address [address] [place] [address] Phone Care Team Providers Care Manager Banking Name Role Phone Marcela Neal DO Primary Care Provider [phone] Encounter Details Date Type Department Care Team (Late st Contact Info) Description 06/20/2013 Documentation [facility] [place] Family Medicine [address] [place] [address] Family Medicine, Physician [address] [place], [place] [phone] Social History Tobacco Use Types Packs/Day Years [...] on filedocumented in this encounter Care Teams Manager Banking Relationship Specialty Start Date End Date Marcela Neal DO [address] [place] [address] PCP - General 12/31/16 08/04/22 documented as of this encounter
--- OUTSIDE RECORDS SUMMARY | 2024-08-28 13:11 | XMS_ITS | Encounter Summary ---
Author Organization [facility] Address [address] [place] [address] Phone Care Team Providers Care Laboratory Supervisor Name Role Phone Marcela Neal DO Primary Care Provider [phone] Encounter Details Date Type Department Care Team (Late st Contact Info) Description 02/23/2010 Documentation [facility] [place] Family Medicine [address] [place] [address] Family Medicine, Physician [address] [place], [place] [phone] Social History Tobacco Use Types Packs/Day Years [...] on filedocumented in this encounter Care Teams Laboratory Supervisor Relationship Specialty Start Date End Date Marcela Neal DO [address] [place] [address] PCP - General 12/31/16 08/04/22 documented as of this encounter
[2024-08-28 14:36] LABS: Vitamin B12 1233 pg/mL (200-900)
[2024-08-28 14:52] LABS: Folate 10.5 ng/mL (> or = 4.0)
== END 2024-08-28 10:51 | disposition home or self-care (01) ==
LOC: HO.10HDL 10:50
PROVIDERS: Visit Provider Physical Medicine & Rehabilitation
DX: G44.86 Cervicogenic headache (principal); M79.18 Myalgia, other site
CPT/HCPCS: 36415; 82306; 82607; 82746

== ENCOUNTER 2024-12-06 08:38 | Outpatient (AMB) | payer OTHER, SELFPAY ==
--- NOTE | 2024-12-06 08:42 | MHC.OFFVIS ---
Intake Visit Reasons: INJ- Trigger point Injection #1 Intake Note: Mica is a 28 year old female who presents today for a Trigger point Injection #1. Patient states she feels tightness. She was going to PT, but they told her to stop doing that and do the exercises at home and to come here. V Belt Curer Required: No Allergies shellfish derived Allergy (Severe, Verified 12/06/24 09:01) Shortness of Breath pumpkin Allergy (Unknown, Verified 12/06/24 09:01) Unknown medroxyprogesterone (From Depo-Provera) Adverse Reaction (Verified 12/06/24 09:01) Flush/Light Headed lobster Allergy (Unknown, Uncoded 12/06/24 09:01) Hives Medication List - Last Reconciled 12/06/24 by Astrid Mckeon RN ibuprofen 600 mg PO Q8H PRN lidocaine 5% 1 patch topical DAILY riboflavin (vitamin B2) 400 mg PO DAILY 30 days HPI Comments Details: Patient reports less cervicogenic headaches but continues to have tightness over trapezius, right worse than left. PENDING SALE TO [facility] Medical History (Updated 08/28/24 @ 10:43 by Tania Corral MD) History of COVID-19 Crohn's disease HELLP syndrome Gestational diabetes Surgical History History of removal of skin mole Family History Mother Asthma Other mast cell activation disorder Maternal Grandfather Cancer of blood vessel Brother Asthma Maternal Aunt Breast cancer Maternal Uncle Leukemia Paternal Grandmother Lung cancer Social History (Updated 08/28/24 @ 10:23 by Gena Pal [facility]) Alcohol intake: current Alcohol intake frequency: holidays/special occasions only Patient Tobacco Use Status: Never used Tobacco Current occupational status: employed 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 Consent obtained. 2 Trigger points palpated on right upper trapezius, 1 on left. Needling performed with gauge 27 needle, subsequently injecting 1 ml of 2% Lidocaine., total of 3 mL. Patient tolerated procedure well. Post-injection instructions given. [id number]-[id number] Point Injection 3 or more All charges added?: Procedure code (CPT) selection complete Assessment & Plan Assessment & Plan (1) Myofascial pain: Code(s): M79.18 - Myalgia, other site Category: Medical (2) Upper back pain: Code(s): M54.9 - Dorsalgia, unspecified Category: Medical Plan Tolerated procedure well. Advised post-injection instructions. Next injection next week. Assessment and plan discussed with patient, and patient was agreeable. All questions were answered thoroughly. Tania Corral MD, BETH Board Certified, [place] Board of Physical Medicine and Rehabilitation (ABPMR) Board Certified, [place] Board of Electrodiagnostic Medicine (ABEM) Orders: Orders AMB Trigger Point Injection Today M79.18 - Myalgia, other site Coding Level of Care Code Procedure Only Diagnoses Myofascial pain M79.18 Upper back pain M54.9 CPT Codes Therapeutic Injection - Ther Injection 2: 13372-Jebmylq Point Injection 3 or more ([id number])
--- OUTSIDE RECORDS SUMMARY | 2024-12-06 08:44 | XMS_ITS | Clinical Summary ---
Author Organization [address] Address [address] [place] [phone] Phone Care Team Providers Care Chef Saucier Name Role Phone Luca Nguyen MD Primary [...] allergic rhinitis 09/28/2017 Generalized abdominal pain 09/28/2017 Immunizations Name Administration Dates Next Due Hepatitis A Adult (Havrix; Vaqta) 19yo and older 05/05/2015 Influenza trivalent, 0.5mL, preservative free (Fluarix; FluLaval; Fluzone) ages 6mo and older (Afluria) 3 years and older 04/07/2016 Hemoteq SARS-CoV-2 COVID-19, mRNA, LNP-S, preservative free 06/20/2021,05/30/2021 Td Tetanus diptheria (Tdvax) 7yo and older 11/03 Tdap Tetanus diptheria acell ular pertussis (Boostrix; Adacel) 7yo and older 02/05/2019 Surgical History Surgery Date Site/Laterality Comments MOLE REMOVAL PROCEDURE: HISTORICAL MOLE (REMOVAL OF); COMMENT: in childhood Medical History Medical History Date Comments Crohn's colitis ([facility] V24 , [facility] V28) 2013 DX:Crohn's colitis ([facility]); CO MMENT: Still in process of being diagnosed Covid-19 [...] 94 06/20/2024 8:03 AM EST Temperature 36.6 C (97.8 F) 06/20/2024 8:03 AM EST Respiratory Rate 16 06/20/2024 8:03 AM EST Oxygen Saturation 98% 06/20/2024 8:03 AM EST Inhaled Oxygen Concentration - - Weight 66.7 kg (147 lb) 06/20/2024 8:03 AM EST Height 154.9 cm (5' 1 ) 06/20/2024 8:03 AM EST Body Mass Index 27.78 06/20/2024 8:03 AM EST Plan of Treatment Upcoming Encounters Date Type Department Care Team (Late st Contact Info) Description 01/09/2025 8:45 AM EDT Office Visit Adult Medicine [facility] [address] [place] [address] Luca Nguyen MD [address] [place] [address] Health Maintenance Due Date Last Done Comments Hepatitis B Vaccines (3 of 3 - 3-dose series) 09/18/1996 07/24/1996, 02/20/1996 Depression Screening 04/21/2022 Social Influencers of Health Screening 04/21/2022 Cervical Cancer Screening: Pap Smear 11/28/2022 11/29/2019 COVID-19 Vaccine ( season) 2024 06/20/2021, 05/30/2021 Influenza Vaccine (#1) 2025 6, 03/26/2004, 05/09/2002, Additional history exists Cholesterol Screening [...] 5 Years) and At-Risk Patients (6 to 49 Years) Aged Out No longer eligible based on patient's age to complete this topic RSV Immunization Patients Under 20 months Aged Out No longer eligible based on patient's age to complete this topic Procedures Procedure Name Priority Date/Time Associated Diagnosis Comments LIPID PANEL Routine 11/02/2023 HIV SCREENING Routine 07/06/2022 PAP SMEAR Routine 11/29/2019 HEPATITIS C SCREENING Routine 09/29/2017 from Last 3 Months or Most Recently Relevant to Health Maintenance Results * Lipid panel (11/02/2023) LDL/HDL Ratio 2 0 - 4 Triglycerides 53 0 - 150 mg/dL Cholesterol 131 0 - 200 mg/dL HDL 58 >=40 mg/dL LDL Cholesterol 63 0 - 100 mg/dL Blood Venous blood specimen / Unknown [facility] Provider LAB BLOOD ORDERABLES Alexa l Result * HIV Screening (07/06/2022) HIV Screening Abstracted [facility] Provider HEALTH MAINTENANCE Final Result * Pap Smear (11/29/2019) Pap smear No interpretation , abstracted Historical Provider HEALTH MAINTENANCE Final Result * Hepatitis C Screening (09/29/2017) Hepatitis C Screening Abstracted [facility] Provider HEALTH MAINTENANCE Final Result from Last 3 Months or Most Recently Relevant to Health Maintenance Insurance [facility] [employer] [address] [place] [address] HEALTH PLAN Care Teams Chef Saucier Relationship Specialty Start Date End Date Luca Nguyen MD [address] [place] [address] PCP - General 12/24/22
--- OUTSIDE RECORDS SUMMARY | 2024-12-06 08:44 | XMS_ITS | Clinical Summary ---
Author Organization [facility] Address [address] [place] [address] Care Team Providers Care Plumbing Foreman Name Role Phone Luca Nguyen MD Primary [...] 60 02/28/2023 3:11 PM EDT Temperature 37.1 C (98.7 F) 02/28/2023 3:11 PM EDT Respiratory Rate - - Oxygen Saturation 100% [...] 06/20/2021, 05/30/2021 Influenza Vaccine (#1) 2025 6, 04/07/2016, 03/26/2004, Additional history exists DTap / Tdap / Td (9 - Td or Tdap) 02/05/2029 02/05/2019, 11/04/2015, 01/31/2008, Additional history exists Pneumococcal Vaccine Aged Out No long er eligible based on patient's age to complete this topic RSV Ped < 20 months Aged Out No longe r eligible based on patient's age to complete this topic Care Teams Plumbing Foreman Relationship Specialty Start Date End Date Luca Nguyen MD [address] [place] [address] PCP - General 12/24/22
--- OUTSIDE RECORDS SUMMARY | 2024-12-06 08:44 | XMS_ITS | Encounter Summary ---
Author Organization [facility] Address [address] [place] [address] Phone Care Team Providers Care Divinity Teacher Name Role Phone Marcela Nael DO Primary Care Provider [phone] Encounter Details Date Type Department Care Team (Late st Contact Info) Description 08/28/2012 Documentation [facility] [place] Medicine [address] [place] [address] Family Medicine, Physician [address] [place], [place] [phone] Social History Tobacco Use Types Packs/Day Years [...] on filedocumented in this encounter Care Teams Divinity Teacher Relationship Specialty Start Date End Date Marcela Neal DO [address] [place] [phone] PCP - General 12/31/16 08/04/22 documented as of this encounter
== END 2024-12-06 09:19 | disposition home or self-care (01) ==
LOC: HO.HOS 08:38
PROVIDERS: Visit Provider Physical Medicine & Rehabilitation
DX: M79.18 Myalgia, other site (principal); M54.9 Dorsalgia, unspecified
CPT/HCPCS: 20553

== ENCOUNTER → 2024-12-06 08:38 | Outpatient (BNVA) | payer OTHER, SELFPAY | PROVIDERS: Visit Provider Physical Medicine & Rehabilitation | DX: M79.18 Myalgia, other site (principal); M54.9 Dorsalgia, unspecified | CPT/HCPCS: 20553; J2003 ==

== ENCOUNTER 2024-12-13 12:02 | Outpatient (AMB) | payer OTHER, SELFPAY ==
[2024-12-13 12:05] VITALS: BMI 24.2
--- NOTE | 2024-12-13 12:05 | MHC.OFFVIS ---
Vital Signs 12/13/24 12:05 Height 5 ft 6 in Weight 150 lb BMI 24.2 Intake Visit Reasons: INJ- Trigger point Injection #2 Intake Note: Mica is a 28 year old left hand dominant female who presents today for Bilateral Upper Trapezius Trigger Point Injections #2. Last injections administered on 12/06/24. At today's visit patient states that the last injection did give some relief but for the past few days her neck feels tight . Allergies shellfish derived Allergy (Severe, Verified 12/13/24 12:08) Shortness of Breath pumpkin Allergy (Unknown, Verified 12/13/24 12:08) Unknown medroxyprogesterone (From Depo-Provera) Adverse Reaction (Verified 12/13/24 12:08) Flush/Light Headed lobster Allergy (Unknown, Uncoded 12/06/24 09:01) Hives HPI Comments Details: Last week, after 1st injection, she felt immediate numbing on shoulders and felt limp maybe on her arm, lasting for the whole day. Last few days, she is feeling more sore on the neck but not in the upper trapezius. Discussed that the lidocaine injected may have given her the numbing sensation as expected. [facility] Medical History (Updated 08/28/24 @ 10:43 by Tania Corral MD) History of COVID-19 Crohn's disease HELLP syndrome Gestational diabetes Surgical History History of removal of skin mole Family History Mother Asthma Other mast cell activation disorder Maternal Grandfather Cancer of blood vessel Brother Asthma Maternal Aunt Breast cancer Maternal Uncle Leukemia Paternal Grandmother Lung cancer Social History (Updated 08/28/24 @ 10:23 by Gena Pal CMA) Alcohol intake: current Alcohol intake frequency: holidays/special occasions only Patient Tobacco Use Status: Never used Tobacco Current occupational status: employed 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 Full range of motion neck. Full shoulder range of motion. Upper extremity 5/5. Negative Esmer's sign. Vital Signs: BMI result Body Mass Index 24.2 Office Procedures Therapeutic Injection Therapeutic Injection Details: Trigger point injection, bilateral upper trapezius. We will do more needling, but inject less lidocaine as compared to last week. Consent obtained. One trigger points palpated on right upper trapezius, 1 on left. Area cleansed with Betadine. Needling performed with gauge 27 needle, subsequently injecting 0.5 ml of 2% Lidocaine on each side, total of 1 mL. Patient tolerated procedure well. Post-injection instructions given. [id number] Point Injection 1 or 2 sites All charges added?: Procedure code (CPT) selection complete Assessment & Plan Assessment & Plan (1) Myofascial pain: Code(s): M79.18 - Myalgia, other site Category: Medical Plan She can observe today how she reacts. If she still feels the numbing sensation and she does not want to continue with the 3rd injection next week, she can call and cancel. Assessment and plan discussed with patient, and patient was agreeable. All questions were answered thoroughly. Either 3rd injection next week or follow up in 4 weeks. Tania Corral MD, BETH Board Certified, [place] Board of Physical Medicine and Rehabilitation (ABPMR) Board Certified, [place] Board of Electrodiagnostic Medicine (ABEM) Orders: Orders AMB Trigger Point Injection Today M79.18 - Myalgia, other site Coding Level of Care Code Procedure Only Diagnoses Myofascial pain M79.18 CPT Codes Therapeutic Injection - Ther Injection 1: [id number] Point Injection 1 or 2 sites ([id number])
--- OUTSIDE RECORDS SUMMARY | 2024-12-13 12:40 | XMS_ITS | Encounter Summary ---
Author Organization [facility] Address [address] [place] [address] Phone Care Team Providers Care Art Therapist Name Role Phone Marcela Neal DO Primary Care Provider Encounter Details Date Type Department Care Team (Late st Contact Info) Description 08/28/[address] [facility] Family Medicine [address] [place] [address] Family Medicine, Physician [address] [place], [place] [phone] Social History Tobacco Use Types Packs/Day Years [...] on filedocumented in this encounter Care Teams Art Therapist Relationship Specialty Start Date End Date Marcela Neal DO [address] [place] [phone] PCP - General 12/31/16 08/04/22 documented as of this encounter
--- OUTSIDE RECORDS SUMMARY | 2024-12-13 12:41 | XMS_ITS | Clinical Summary ---
Author Organization [facility] Address [address] [place] [address] Care Team Providers Care Hazmat Truck Driver Name Role Phone Luca Nguyen MD Primary [...] age to complete this topic Care Teams Hazmat Truck Driver Relationship Specialty Start Date End Date Luca Nguyen MD [address] [place] [address] PCP - General 12/24/22
--- OUTSIDE RECORDS SUMMARY | 2024-12-13 12:41 | XMS_ITS | Clinical Summary ---
Author Organization [facility] Address [address] [place] [address] Phone Care Team Providers Care Profiling Machine Setup Operator Name Role Phone Pcp, Unknown Primary Care Provider Unavailabl e Allergies Active Allergy Reactions Criticality Noted Date Comments Pumpkin 06/28/2022 Medications No known medications Social History Tobacco Use Types Packs/Day Years Used Date Smoking Tobacco: Never Assessed Education Answer Date Recorded Are you interested in more education? Not on prachi e 09/17/2022 Are you concerned about learning? Not on file 09/17/2022 No 09/17/2022 No 09/17/2022 Digital Access Answer Date Recorded No 10/18/2022 No 10/18/2022 No 10/18/2022 Reliable internet access at home? Not on file 10/18/2022 Device with a working camera? Not on file Intimate Partner Violence Answer Date R ecorded Are you denied basic needs s uch as food, clothing, or medical care? No 06/28/2022 In the past 12 months have y ou been in a relationship with a person who hurts, threatens, or tries to control you? No 06/28/2022 Are you denied basic needs s uch as food, clothing, or medical care? No 06/28/2022 In the past 12 months have y ou been in a relationship with a person who hurts, threatens, or tries to control you? No 06/28/2022 Comments Unknown Sex and Gender Information Value Date Recorded Sex Assigned at Not on file Legal Sex Female 4:47 PM EDT Gender Identity Not on file Sexual Orientation Not on file Last Filed Vital Signs Vital Sign Reading Time Taken Comments Blood Pressure 105/69 06/29/2022 1:43 AM EST Pulse 91 06/28/2022 9:52 PM EST Temperature 37.5 C (99.5 F) 06/28/2022 9:52 PM EST Respiratory Rate 20 06/28/2022 9:52 PM EST Oxygen Saturation 100% 06/28/2022 9:52 PM EST Inhaled Oxygen Concentration - - Weight 56.7 kg (125 lb) 06/28/2022 9:52 PM EST Height 157.5 cm (5' 2 ) 06/28/2022 9:52 PM EST Body Mass Index 22.86 06/28/2022 9:52 PM EST Plan of Treatment Not on file Medical Devices Not on file [place] [address] [place] [address] [place] [address] [address] [employer] [facility] [place] [address] [place] [address] [place] [address] [place] [address] [place] [address] [place] [address] [facility] [place] [address] [place] [address] ACO Care Teams Profiling Machine Setup Operator Relationship Specialty Start Date End Date Pcp, Unknown PCP - General 06/28/22 Additional Source Comments The information contained in this document represents components of the legal health record. It is not the complete legal health record.[facility]
--- OUTSIDE RECORDS SUMMARY | 2024-12-13 12:41 | XMS_ITS ---
Author Name [facility] Organization Unknown Care Team Organization Name Specialty Phone Email Start Date End Da te [facility] URSULA SHARIF Primary Care [email or web address] 10/29/2022 4 [facility] Ben Escobar Primary Care 03/30/2022 4
--- OUTSIDE RECORDS SUMMARY | 2024-12-13 12:41 | XMS_ITS | Clinical Summary ---
Author Organization [address] Address [address] [place] [phone] Phone Care Team Providers Care Machinist Instructor Name Role Phone Luca Nguyen MD Primary [...] older (Afluria) 3 years and older 04/07/2016 InVitae SARS-CoV-2 COVID-19, mRNA, LNP-S, preservative free 06/20/2021,05/30/2021 Td Tetanus diptheria (Tdvax) 7yo and older 11/03 Tdap Tetanus diptheria acell ular pertussis (Boostrix; Adacel) 7yo and older 02/05/2019 Surgical History Surgery Date Site/Laterality Comments MOLE REMOVAL PROCEDURE: HISTORICAL MOLE (REMOVAL OF); COMMENT: in childhood Medical History Medical History Date Comments Crohn's colitis ([facility] V24 , [facility] V28) 2013 DX:Crohn's colitis ([facility]); CO MMENT: Still in process of being [...] 8:45 AM EDT Office Visit Adult Medicine [facility] [address] [place] [address] Luca Nguyen MD [address] [place] [address] Health Maintenance Due Date Last Done Comments Hepatitis B Vaccines (3 of 3 - 3-dose series) 09/18/1996 07/24/1996, 02/20/1996 Social Influencers of Health Screening 04/21/2022 Cervical Cancer Screening: Pap Smear 11/28/2022 11/29/2019 COVID-19 Vaccine ( season) 2024 06/20/2021, 05/30/2021 Depression Screening 05/23/2024 Influenza Vaccine (#1) 2025 6, 03/26/2004, 05/09/2002, [...] mg/dL Blood Venous blood specimen / Unknown [facility] Provider LAB BLOOD ORDERABLES Alexa l Result * HIV Screening (07/06/2022) HIV Screening Abstracted [facility] Provider HEALTH MAINTENANCE Final Result * Pap Smear (11/29/2019) Pap smear No interpretation , abstracted Historical Provider HEALTH MAINTENANCE Final Result * Hepatitis C Screening (09/29/2017) Hepatitis C Screening Abstracted [facility] Provider HEALTH MAINTENANCE Final Result from Last 3 Months or Most Recently Relevant to Health Maintenance Insurance [facility] HEALTH PLAN [address] [place] [address] HEALTH PLAN Care Teams Machinist Instructor Relationship Specialty Start Date End Date Luca Nguyen MD [address] [place] [address] PCP - General 12/24/22
== END 2024-12-13 12:30 | disposition home or self-care (01) ==
LOC: HO.HOS 12:03
PROVIDERS: Visit Provider Physical Medicine & Rehabilitation
DX: M79.18 Myalgia, other site (principal); M54.2 Cervicalgia
CPT/HCPCS: 20552

== ENCOUNTER → 2024-12-13 12:02 | Outpatient (BNVA) | payer OTHER, SELFPAY | PROVIDERS: Visit Provider Physical Medicine & Rehabilitation | DX: M79.18 Myalgia, other site (principal) | CPT/HCPCS: 20552; J2003 ==

== ENCOUNTER 2024-12-20 11:58 | Outpatient (AMB) | payer OTHER, SELFPAY ==
--- NOTE | 2024-12-20 11:59 | A.OFFVIS_ITS ---
Vital Signs 12/20/24 12:00 Height 5 ft 6 in Weight 150 lb BMI 24.2 Intake Visit Reasons: INJ- Trigger point Injection #3 Intake Note: Mica is a 28 year old female who presents today for her trigger point Injection #3. At today's visit she states that she is pleased with the way the last injection went, she noted that she feels more relaxed. Patient states that she has seen an improvement with her ROM since last injection. Allergies shellfish derived Allergy (Severe, Verified 12/20/24 12:03) Shortness of Breath pumpkin Allergy (Unknown, Verified 12/20/24 12:03) Unknown medroxyprogesterone (From Depo-Provera) Adverse Reaction (Verified 12/20/24 12:03) Flush/Light Headed lobster Allergy (Unknown, Uncoded 12/06/24 09:01) Hives [facility] Medical History (Updated 08/28/24 @ 10:43 by Tania Corral MD) History of COVID-19 Crohn's disease HELLP syndrome Gestational diabetes Surgical History History of removal of skin mole Family History Mother Asthma Other mast cell activation disorder Maternal Grandfather Cancer of blood vessel Brother Asthma Maternal Aunt Breast cancer Maternal Uncle Leukemia Paternal Grandmother Lung cancer Social History (Updated 08/28/24 @ 10:23 by Gena Pal [facility]) Alcohol intake: current Alcohol intake frequency: holidays/special occasions only Patient Tobacco Use Status: Never used Tobacco Current occupational status: employed 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 Consent obtained. One smaller trigger point palpated on right upper trapezius. Area cleansed with Betadine. Needling performed with gauge 27 needle, subsequently injecting 0.5 ml of 2% Lidocaine., total of 0.5 mL. Patient tolerated procedure well. Post-injection instructions given. [id number] Point Injection 1 or 2 sites All charges added?: Procedure code (CPT) selection complete Assessment & Plan Assessment & Plan (1) Myofascial pain: Code(s): M79.18 - Myalgia, other site Category: Medical Plan Tolerated procedure well today. Assessment and plan discussed with patient, and patient was agreeable. All questions were answered thoroughly. Follow up 2 months. Tania Corral MD, BETH Board Certified, [place] Board of Physical Medicine and Rehabilitation (ABPMR) Board Certified, [place] Board of Electrodiagnostic Medicine (ABEM) Orders: Orders AMB Trigger Point Injection Today M79.18 - Myalgia, other site Coding Level of Care Code Procedure Only Diagnoses Myofascial pain M79.18 CPT Codes Therapeutic Injection - Ther Injection 1: [id number]-[id number] Point Injection 1 or 2 sites ([id number])
[2024-12-20 12:00] VITALS: BMI 24.2
--- OUTSIDE RECORDS SUMMARY | 2024-12-20 12:31 | XMS_ITS | Encounter Summary ---
Author Organization [facility] Address [address] [place] [address] Phone Care Team Providers Care Safety Council Director Name Role Phone Marcela Neal DO Primary Care Provider [phone] Encounter Details Date Type Department Care Team (Late st Contact Info) Description 08/28/2012 Documentation [facility] [place] [address] [place] [address] Family Medicine, Physician [address] [place], [place] [phone] Social History Tobacco Use Types Packs/Day Years [...] on filedocumented in this encounter Care Teams Safety Council Director Relationship Specialty Start Date End Date Marcela Neal DO [address] [place] [address] PCP - General 12/31/16 08/04/22 documented as of this encounter
--- OUTSIDE RECORDS SUMMARY | 2024-12-20 12:31 | XMS_ITS | Clinical Summary ---
Author Organization [facility] Address [address] [place] [address] Phone Care Team Providers Care Head Counselor Name Role Phone Pcp, Unknown Primary Care [...] file Medical Devices Not on file [place] [address] [address] [place] [address] [address] [employer] [facility] [place] [address] [place] [address] [address] [place] [address] [place] [place] [address] [facility] [place] [address] ACO Care Teams Head Counselor Relationship Specialty Start Date End Date Pcp, Unknown PCP - General 06/28/22 Additional Source Comments The information contained in this document represents components of the legal health record. It is not the complete legal health record.[facility]
--- OUTSIDE RECORDS SUMMARY | 2024-12-20 12:31 | XMS_ITS | Clinical Summary ---
Author Organization [facility] [address] [place] [address] [place] [phone] Phone Care Team Providers Care Home Economics Teacher Name Role Phone Luca Nguyen MD Primary [...] if needed (pain). 60 tablet 5 Active aspirin-acetamin ophen-caffeine (Excedrin Migraine) 250-250-65 mg per tablet Take 1 tablet by mouth every 6 (six) hours if needed for headaches for up to 10 days. 30 tablet 07/25 025 Active Active Problems Problem Noted Date Diagnosed Date Syncope 09/28/2017 Perennial allergic rhinitis 09/28/2017 Generalized abdominal pain 09/28/2017 Encounters Date Type Department Care Team Description 12/14/2024 1:45 PM EDT Office Visit Walk-In Clinic - [address] [phone] Donny Torres PA Acute non intractable tension-type headache (Primary Dx) 12/14/2024 Nurse Triage Adult Medicine [address] [phone] Luca Nguyen MD Headache from Last 3 Months Immunizations Name Administration Dates Next Due Hepatitis A Adult (Havrix; Vaqta) 19yo and older 05/05/2015 Influenza trivalent, 0.5mL, preservative free (Fluarix; FluLaval; Fluzone) ages 6mo and older (Afluria) 3 years and older 04/07/2016 iPling SARS-CoV-2 COVID-19, mRNA, LNP-S, preservative free 06/20/2021,05/30/2021 Td Tetanus diptheria (Tdvax) 7yo and older 11/03 Tdap Tetanus diptheria acell ular pertussis (Boostrix; Adacel) 7yo and older 02/05/2019 Surgical History Surgery Date Site/Laterality Comments MOLE REMOVAL PROCEDURE: HISTORICAL MOLE (REMOVAL OF); COMMENT: in childhood Medical History Medical History Date Comments Crohn's colitis ([facility] V24 , [facility] V28) 2013 DX:Crohn's colitis ([facility]); CO MMENT: Still in process of being [...] Sign Reading Time Taken Comments Blood Pressure 100/58 12/14/2024 1:30 PM EDT Pulse 97 12/14/2024 1:30 PM EDT Temperature 37.3 C (99.2 F) 12/14/2024 1:30 PM EDT Respiratory Rate 16 06/20/2024 8:03 AM EST Oxygen Saturation 98% 12/14/2024 1:30 PM EDT Inhaled Oxygen Concentration - - Weight 66.7 kg (147 lb) 06/20/2024 8:03 AM EST Height 154.9 cm (5' 1 ) 06/20/2024 8:03 AM EST Body Mass Index 27.78 06/20/2024 8:03 AM EST Plan of Treatment Upcoming Encounters Date Type Department Care Team (Late st Contact Info) Description 01/09/2025 8:45 AM EDT Office Visit Adult Medicine [address] [phone] Luca Nguyen MD [address] [place] [phone] Health Maintenance Due Date Last Done Comments Hepatitis B Vaccines (3 of 3 - 3-dose series) 09/18/1996 07/24/1996, 02/20/1996 Pneumococcal Vaccine: Pediatrics (0 to 5 Years) and At-Risk Patients (6 to 49 Years) (1 of 2 - PCV) 12/18/2014 Social Influencers of Health Screening 04/21/2022 Cervical Cancer Screening: Pap Smear 11/28/2022 11/29/2019 COVID-19 Vaccine ( season) 2024 06/20/2021, 05/30/2021 Depression Screening 05/23/2024 Influenza Vaccine (#1) 2025 9, 04/07/2016, 03/26/2004, Additional history exists Hypertension/CHF/CAD Annual BMP Blood Test 12/14/2025 12/14/2024, 12/03/2022 Cholesterol Screening (Lipid Panel) 11/01/2028 11/02/2023 DTaP,Tdap,and Td Vaccines (9 - Td or Tdap) 02/05/2029 02/05/2019, 11/04/2015, 01/31/2008, Additional history exists Varicella Vaccines Aged Out 05/23/1996 No longer eligible based on patient's age to complete this topic HIB Vaccines Completed 05/31/1997, 08/1996, 04/30/1996, Additional history exists IPV Vaccines Completed 12/21/1999, 08/1996, 04/30/1996, Additional history exists HPV Vaccines Completed 03/05/2011, 04/23, 02/27/2010 Meningococcal ACWY Vaccine Completed 05/01/2014, Hepatitis A Vaccines Completed 05/05/2015, 05/01/20 14 Hepatitis C Screening Completed 09/29/2017 MMR Vaccines Completed 03/01/2019, 11/22, 01/10/1997 HIV Screening Completed 07/06/2022 Meningococcal B Vaccine Aged Out No l onger eligible based on patient's age to complete this topic RSV Immunization Patients Under 20 months Aged Out No longer eligible based on patient's age to complete this topic Procedures Procedure Name Priority Date/Time Associated Diagnosis Comments CBC WITH AUTO DIFFERENTIAL Routine 12/14/2024 4:02 PM EDT Acute non intractable tension-type headache CBC AND DIFFERENTIAL Routine 12/14/2024 4:02 PM EDT Acute non intractable tension-type headache COMPREHENSIVE METABOLIC PANEL Routine 12/14/2024 4:02 PM EDT Acute non intractable tension-type headache THYROID STIMULATING HORMONE WITH REFLEX TO FREE T4 AND FREE T3 Routine 12/14/2024 4:02 PM EDT Acute non intractable tension-type headache VITAMIN B6 Routine 12/14/2024 4:02 PM EDT Acute non intractable tension-type headache METHYLMALONIC ACID, SERUM Routine 12/14/2024 4:02 PM EDT Acute non intractable tension-type headache MAGNESIUM Routine 12/14/2024 4:02 PM EDT Acute non intractable tension-type headache LIPID PANEL Routine 11/02/2023 HM HIV SCREENING Routine 07/06/2022 HM PAP SMEAR Routine 11/29/2019 HM HEPATITIS C SCREENING Routine 09/29/2017 from Last 3 Months or Most Recently Relevant to Health Maintenance Results * Thyroid stimulating hormone with reflex to free t4 and free t3 (12/14/2024 4:02 PM EDT) TSH 1.18 0.40 - 4.00 mcIU/mL LAB CHEMISTRY METHOD 12/14/2024 7:16 PM EDT [facility] Blood Venous blood specimen / Unknown Venipuncture / Unknown 12/14/2024 4:02 PM EDT 12/14/2024 4:02 PM EDT us Donny STONE LAB BLOOD ORDERABLES Final Result [facility] [address] [place] [address], * (ABNORMAL) CBC auto differential (12/14/2024 4:02 PM EDT) WBC 9.1 4.8 - 10.8 K/mcL LAB HEMETOLOGY METHOD 12/14/2024 6:27 PM EDT [facility] RBC 4.40 3.80 - 4.80 M/mcL LAB HEMETOLOGY METHOD 12/14/2024 6:27 PM EDT [facility] Hemoglobin 12.8 11.5 - 16.0 g/dL LAB HEMETOLOGY METHOD 12/14/2024 6:27 PM EDT [facility] Hematocrit 38.1 35.0 - 47.0 % LAB HEMETOLOGY METHOD 12/14/2024 6:27 PM EDT [facility] MCV 87.4 79.0 - 98.0 FL LAB HEMETOLOGY METHOD 12/14/2024 6:27 PM EDT [facility] MCH 29.4 27.0 - 32.0 pcg LAB HEMETOLOGY METHOD 12/14/2024 6:27 PM EDT [facility] MCHC 33.6 32.0 - 37.0 g/dL LAB HEMETOLOGY METHOD 12/14/2024 6:27 PM EDT [facility] RDW 12.2 11.0 - 15.0 % LAB HEMETOLOGY METHOD 12/14/2024 6:27 PM EDT [facility] Platelets 272 130 - 400 K/mcL LAB HEMETOLOGY [facility] MPV 10.4 7.0 - 11.0 FL LAB HEMETOLOGY METHOD 12/14[facility]2024 [facility] NRBC 0.0 <1.0 % LAB HEMETOLOGY METHOD 12/14/2024 6:27 PM EDT [facility] NRBC Absolute 0.00 <0.10 K/mcL LAB HEMETOLOGY METHOD 12/14/2024 6:27 PM EDT [facility] Neutrophils Relative 80.2 % LAB HEMETOLOGY METHOD 12/14/2024 6:27 PM EDT [facility] Lymphocytes Relative 14.7 % LAB HEMETOLOGY METHOD 12/14/2024 6:27 PM EDT [facility] Monocytes Relative 4.1 % LAB HEMETOLOGY METHOD 12/14/2024 6:27 PM EDT [facility] Eosinophils Relative 0.3 % LAB HEMETOLOGY METHOD 12/14/2024 6:27 PM EDT [facility] Basophils Relative 0.3 % LAB HEMETOLOGY METHOD 12/14/2024 6:27 PM EDT [facility] Immature Granulocytes Relative 0.4 % LAB HEMETOLOGY METHOD 12/14/2024 6:27 PM EDT [facility] Neutrophils Absolute 7.32(H) 1.50 - 7.00 K/mcL LAB HEMETOLOGY METHOD 12/14/2024 6:27 PM EDT [facility] Lymphocytes Absolute 1.34 1.00 - 5.00 K/mcL LAB HEMETOLOGY METHOD 12/14/2024 6:27 PM EDT [facility] Monocytes Absolute 0.37 0.20 - 1.00 K/mcL LAB HEMETOLOGY METHOD 12/14/2024 6:27 PM EDT [facility] Eosinophils Absolute 0.03 0.00 - 0.50 K/mcL LAB HEMETOLOGY METHOD 12/14/2024 6:27 PM EDT [facility] Basophils Absolute 0.03 0.00 - 0.20 K/mcL LAB HEMETOLOGY METHOD 12/14/2024 6:27 PM EDT [facility] Immature Granulocytes Absolute 0.04(H) 0.00 - 0.03 K/mcL LAB HEMETOLOGY METHOD 12/14/2024 6:27 PM EDT [facility] Blood Venous blood specimen / Unknown Venipuncture / Unknown 12/14/2024 4:02 PM EDT 12/14/2024 4:02 PM EDT us Donny STONE LAB BLOOD ORDERABLES Final Result [facility] [address] [place] [address], * Methylmalonic acid, serum (12/14/2024 4:02 PM EDT) Methylmalonic Acid 0.16 <0.40 umol/L 12/18/2024 9:01 AM EDT [facility] Comment: If applicable, any drug confirmation testing reported here was developed and the performance characteristics determined by [facility]. This confirmation testing has not been cleared or approved by the FDA. The laboratory is regulated under CLIA as qualified to perform high-complexity testing. This test is used for patient testing purposes. It should not be regarded as investigational or for research. Test performed at [facility], [address], [place] [address] Renetta Hair MD, PhD - Office Rn Blood Venous blood specimen / Unknown Venipuncture / Unknown 12/14/2024 4:02 PM EDT 12/14/2024 4:02 PM EDT Donny Torres [place] LAB BLOOD ORDERABLES Final Result [facility] [address] [place] [address] * Vitamin B6 (12/14/2024 4:02 PM EDT) Vitamin B6 (Pyridoxine) Level 13 5 - 50 ug/L 12/18/2024 10:52 AM EDT [facility] Comment: This test was developed and the performance characteristics determined by [facility]. It has not been cleared or approved by the FDA. The laboratory is regulated under CLIA as qualified to perform high-complexity testing. This test is used for patient testing purposes. It should not be regarded as investigational or for research. Test performed at [facility], [address], [place] [address] Renetta Hair MD, PhD - Office Rn Blood Venous blood specimen / Unknown Venipuncture / Unknown 12/14/2024 4:02 PM EDT 12/14/2024 4:02 PM EDT Donny STONE LAB BLOOD ORDERABLES Final Result [place] [address] * Magnesium (12/14/2024 4:02 PM EDT) Magnesium 2.0 1.9 - 2.6 mg/dL LAB CHEMISTRY METHOD 12/14/2024 6:45 PM EDT [facility] Blood Venous blood specimen / Unknown Venipuncture / Unknown 12/14/2024 4:02 PM EDT 12/14/2024 4:02 PM EDT Donny STONE LAB BLOOD ORDERABLES Final Result Performing Organization Address [facility]/ZIP Co de Phone Number [facility] [address] [place] [address], [place] [phone] * (ABNORMAL) Comprehensive metabolic panel (12/14/2024 4:02 PM EDT) Sodium 138 133 - 145 mmol/L LAB CHEMISTRY METHOD 12/14/2024 6:45 PM EDT [facility] Potassium 3.9 3.5 - 5.5 mmol/L LAB CHEMISTRY METHOD 12/14/2024 6:45 PM EDT [facility] Chloride 108 96 - 110 mmol/L LAB CHEMISTRY METHOD 12/14/2024 6:45 PM EDT [facility] CO2 25 21 - 32 mmol/L LAB CHEMISTRY METHOD 12/14/2024 6:45 PM EDT [facility] Anion Gap 5 3 - 11 LAB CHEMISTRY METHOD 12/14/2024 6:45 PM [facility] Glucose 103(H) 70 - 100 mg/dL LAB CHEMISTRY METHOD 12/14/2024 6:45 PM EDT [facility] BUN 11 5 - 25 mg/dL LAB CHEMISTRY METHOD 12/14/2024 6:45 PM [facility] Creatinine 0.75 0.50 - 1.10 mg/dL LAB CHEMISTRY METHOD 12/14/2024 6:45 PM [facility] eGFR 111 >=60 mL/min/1. 73m2 LAB CHEMISTRY METHOD 12/14/2024 6:45 PM [facility] Comment:Calculation based on the Chronic Kidney Disease Epidemiology Collaboration (CKD-EPI) equation refit without adjustment for race. BUN/Creatinine Ratio 14.7 LAB CHEMISTRY METHOD 12/14/2024 6:45 PM [facility] Calcium 9.4 8.5 - 10.5 mg/dL LAB CHEMISTRY METHOD 12/14/2024 6:45 PM [facility] AST (SGOT) 16 10 - 42 unit/L LAB CHEMISTRY METHOD 12/14/2024 6:45 PM [facility] ALT (SGPT) 21 10 - 60 unit/L LAB CHEMISTRY METHOD 12/14/2024 6:45 PM [facility] Alkaline Phosphatase 73 42 - 121 unit/L LAB CHEMISTRY METHOD 12/14/2024 6:45 PM [facility] Total Protein 7.5 6.0 - 8.0 g/dL LAB CHEMISTRY METHOD 12/14/2024 6:45 PM [facility] Albumin 4.3 3.2 - 5.0 g/dL LAB CHEMISTRY METHOD 12/14/2024 6:45 PM [facility] Total Bilirubin 0.6 0.0 - 1.4 mg/dL LAB CHEMISTRY METHOD 12/14/2024 6:45 PM [facility] Blood Venous blood specimen / Unknown Venipuncture / Unknown 12/14/2024 4:02 PM EDT 12/14/2024 4:02 PM EDT Donny STONE LAB BLOOD ORDERABLES Final Result [facility] [address] [place] [address], * Lipid panel (11/02/2023) LDL/HDL Ratio 2 0 - 4 Triglycerides 53 0 - 150 mg/dL Cholesterol 131 0 - 200 mg/dL HDL 58 >=40 mg/dL LDL Cholesterol 63 0 - 100 mg/dL Blood Venous blood specimen / Unknown [facility] Provider MD LAB BLOOD ORDERABLES Alexa l Result * HIV Screening (07/06/2022) [facility] HIV Screening Abstracted [facility] Provider MD HEALTH MAINTENANCE Final Result * Pap Smear (11/29/2019) Pathologist [facility] Pap smear No interpretation , abstracted [facility] Provider MD HEALTH MAINTENANCE Final Result * Hepatitis C Screening (09/29/2017) Pathologist [facility] Hepatitis C Screening Abstracted [facility] Provider MD HEALTH MAINTENANCE Final Result from Last 3 Months or Most Recently Relevant to Health Maintenance Insurance [facility] [employer] [facility] Care Teams Home Economics Teacher Relationship Specialty Start Date End Date Luca Nguyen MD [address] [place] [phone] PCP - General 12/24/22
--- OUTSIDE RECORDS SUMMARY | 2024-12-20 12:31 | XMS_ITS | Clinical Summary ---
Author Organization [facility] Address [address] [place] [address] Care Team Providers Care Computer Information Systems Professor Name Role Phone Luca Nguyen MD Primary [...] age to complete this topic Care Teams Computer Information Systems Professor Relationship Specialty Start Date End Date Luca Nguyen MD [address] [place] [address] PCP - General 12/24/22
== END 2024-12-20 12:27 | disposition home or self-care (01) ==
LOC: HO.HOS 11:59
PROVIDERS: Visit Provider Physical Medicine & Rehabilitation
DX: M79.18 Myalgia, other site (principal)
CPT/HCPCS: 20552

== ENCOUNTER → 2024-12-20 11:58 | Outpatient (BNVA) | payer OTHER, SELFPAY | PROVIDERS: Visit Provider Physical Medicine & Rehabilitation | DX: M79.18 Myalgia, other site (principal) | CPT/HCPCS: 20552; J2003 ==

== ENCOUNTER 2025-02-21 11:12 | Outpatient (AMB) | payer OTHER, SELFPAY ==
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
[2025-02-21 11:17] VITALS: BMI 28.3
--- OUTSIDE RECORDS SUMMARY | 2025-02-21 13:08 | XMS_ITS | Encounter Summary ---
Author Organization [facility] Address [address] [place] [address] Phone Care Team Providers Care Senior Instructional Designer Name Role Phone Marcela Neal DO Primary Care Provider [phone] Encounter Details Date Type Department Care Team (Late st Contact Info) Description 06/20/2013 Documentation [facility] [address] [place] [address] Family Medicine, Physician [address] [place], [place] [phone] Social History Tobacco Use Types Packs/Day Years [...] filedocumented in this encounter Care Teams Senior Instructional Designer Relationship Specialty Start Date End Date Marcela Neal DO [address] [place] [address] PCP - General 12/31/16 08/04/22 documented as of this encounter
--- OUTSIDE RECORDS SUMMARY | 2025-02-21 13:08 | XMS_ITS | Encounter Summary ---
Author Organization [facility] Address [address] [place] [address] Phone Care Team Providers Care Tablet Machine Operator Name Role Phone Marcela Neal DO Primary Care Provider [phone] Encounter Details Date Type Department Care Team (Late st Contact Info) Description 11/16/2011 [place]ation [facility] [place] [address] [place] [address] Family Medicine, Physician [address] [place], [place] [phone] Social History Tobacco Use Types Packs/Day Years [...] on filedocumented in this encounter Care Teams Tablet Machine Operator Relationship Specialty Start Date End Date Marcela Neal DO [address] [place] [phone] PCP - General 12/31/16 08/04/22 documented as of this encounter
--- OUTSIDE RECORDS SUMMARY | 2025-02-21 13:08 | XMS_ITS | Encounter Summary ---
Author Organization [facility] Address [address] [place] [address] Phone Care Team Providers Care Psychiatric Rn Name Role Phone Marcela Neal DO Primary Care Provider [phone] Encounter Details Date Type Department Care Team (Late st Contact Info) Description 05/11/2011 Documentation [facility] [place] Medicine [address] [place] [address] Family Medicine, Physician [address] [place], [place] [phone] Social History Tobacco Use Types Packs/Day Years [...] on filedocumented in this encounter Care Teams Psychiatric Rn Relationship Specialty Start Date End Date Marcela Neal DO [address] [place] [address] PCP - General 12/31/16 08/04/22 documented as of this encounter
--- OUTSIDE RECORDS SUMMARY | 2025-02-21 13:08 | XMS_ITS | Encounter Summary ---
Author Organization [facility] Address [address] [place] [phone] Phone Care Team Providers Care Checker Bakery Products Name Role Phone Marcela Neal DO Primary Care Provider [phone] Encounter Details Date Type Department Care Team (Late st Contact Info) Description 06/30/2015 Documentation [facility] [place] Medicine [address] [place] [address] Family Medicine, Physician [address] [place], [place] [phone] Social History Tobacco Use Types Packs/Day Years [...] on filedocumented in this encounter Care Teams Checker Bakery Products Relationship Specialty Start Date End Date Marcela Neal DO [address] [place] [phone] PCP - General 12/31/16 08/04/22 documented as of this encounter
--- OUTSIDE RECORDS SUMMARY | 2025-02-21 13:08 | XMS_ITS | Clinical Summary ---
Author Organization [facility] Address [address] [place] [address] Phone Care Team Providers Care Freezing Machine Operator Name Role Phone Unavailable Primary Care Provider [...] 75 06/02/2016 12:00 AM EST Temperature 37 C (98.6 F) 10/28/2016 12:00 AM EDT Respiratory Rate - [...] 2-dose series) 12/18/2008 05/23/1996 Influenza Vaccines (#1) 2024 04/07/20 16, 03/26/2004, 05/09/2002, Additional history exists COVID-19 Vaccine ( - 2024- season) 2025 DTaP,Tdap,and Td Vaccines (8 - Td or [...] complete this topic Procedures * Due to [place] state law, this organization might not be sharing sensitive test results. Procedure Name Priority Date/Time Associated Diagnosis Comments CHLAMYDIA AND GONORRHEA, AMPLIFIED Routine 06/03/2016 2:05 PM EST from Last 3 Months or Most Recently Relevant to Health Maintenance Results * Due to [place] state law, this organization might not be sharing sensitive test results. * Chlamydia and Gonorrhoea, Amplified (06/03/2016 2:05 PM EST) URINE CHLAMYDIA AMP PROBE NEGATIVE [facility] Comment: No Chlamydia Trachomatis RNA detected in this patient's sample (REFERENCE RANGE/NORMAL VALUE: NOT DETECTED) URINE GC AMP PROBE NEGATIVE [facility] Comment: No Neisseria Gonorrhoeae RNA detected in this patient's sample (REFERENCE RANGE/NORMAL VALUE: NOT DETECTED) NOTE: This test uses fuel conversion technician-mediated amplification method to detect rRNA from C.Trachomatis [...] without risk of sexual abuse. Consult the [facility] [place] if needed. Contact phone number . Therapeutic failure or success cannot be determined with the Aptima Combo2 assay since nucleic acid may persist following appropriate antimicrobial therapy. The Centers for Disease Control and Prevention (CDC) recommends confirmatory retesting using culture or a different nucleic acid amplification test when positive results occur, if indicated. Testing performed or reported by [facility], a Service of [facility], [facility] [place] [address] [facility] [id number] Francis Mendez MD, PhD, Pressure Tester Operator 06/03/2016 2:05 PM EST Narrative [facility] - 06/03/2016 2:05 PM EST URINE CHLAMYDIA GC AMP PROBE Marcela Neal DO LAB MICROBIOLOGY - GENERAL ORDER MARSHAL Final Result [facility] [address] [place] [address], from Last 3 Months or Most Recently Relevant to Health Maintenance Insurance [facility]
--- OUTSIDE RECORDS SUMMARY | 2025-02-21 13:08 | XMS_ITS | Encounter Summary ---
Author Organization [facility] Address [address] [place] [address] Phone Care Team Providers Care Chemical Processing Laborer Name Role Phone Marcela Neal DO Primary Care Provider [phone] Encounter Details Date Type Department Care Team (Late st Contact Info) Description 05/01/2013 Documentation [facility] [place] Family Medicine [address] [place] [address] Family Medicine, Physician [address] [place], [place] [id number] Social History Tobacco Use Types Packs/Day Years [...] on filedocumented in this encounter Care Teams Chemical Processing Laborer Relationship Specialty Start Date End Date Marcela Neal DO [address] [place] [address] PCP - General 12/31/16 08/04/22 documented as of this encounter
--- OUTSIDE RECORDS SUMMARY | 2025-02-21 13:08 | XMS_ITS | Encounter Summary ---
Author Organization [facility] Address [address] [place] [address] Phone Care Team Providers Care Frozen Foods Manager Name Role Phone Marcela Neal DO Primary Care Provider [phone] Encounter Details Date Type Department Care Team (Late st Contact Info) Description 05/14/2013 Documentation [facility] [place] Family Medicine [address] [place] [address] Family Medicine, Physician [address] [place], [place] [phone] Social History Tobacco Use Types Packs/Day Years [...] on filedocumented in this encounter Care Teams Frozen Foods Manager Relationship Specialty Start Date End Date Marcela Neal DO [address] [place] [address] PCP - General 12/31/16 08/04/22 documented as of this encounter
--- OUTSIDE RECORDS SUMMARY | 2025-02-21 13:08 | XMS_ITS | Encounter Summary ---
Author Organization [facility] Address [address] [place] [address] Phone Care Team Providers Care Electro Mechanical Technologist Name Role Phone Marcela Neal DO Primary Care Provider [phone] Encounter Details Date Type Department Care Team (Late st Contact Info) Description 01/06/2017 Conversion Encounter [facility] [address] [place] [address] Social History Tobacco Use Types Packs/Day Years [...] on filedocumented in this encounter Care Teams Electro Mechanical Technologist Relationship Specialty Start Date End Date Marcela Neal DO [address] [place] [address] PCP - General 12/31/16 08/04/22 documented as of this encounter
--- OUTSIDE RECORDS SUMMARY | 2025-02-21 13:08 | XMS_ITS | Encounter Summary ---
Author Organization [facility] Address [address] [place] [address] Phone Care Team Providers Care Laborer Hoisting Name Role Phone Marcela Neal DO Primary Care Provider [phone] Encounter Details Date Type Department Care Team (Late st Contact Info) Description 03/27/2013 Documentation [facility] [address] [place] [address] Family Medicine, Physician [address] [place], [place] [phone] Social History Tobacco Use Types Packs/Day Years [...] on filedocumented in this encounter Care Teams Laborer Hoisting Relationship Specialty Start Date End Date Marcela Neal DO [address] [place] [address] PCP - General 12/31/16 08/04/22 documented as of this encounter
--- OUTSIDE RECORDS SUMMARY | 2025-02-21 13:08 | XMS_ITS | Clinical Summary ---
Author Organization [facility] Address [address] [place] [address] Care Team Providers Care Senior Digital Designer Name Role Phone Luca Nguyen MD Primary [...] (Pap Smear) 12/18/2016 COVID-19 Vaccine ( season) 2025 06/20/2021, 05/30/2021 Influenza Vaccine (#1) 2025 6, [...] age to complete this topic Care Teams Senior Digital Designer Relationship Specialty Start Date End Date Luca Nguyen MD [address] [place] [address] PCP - General 12/24/22
--- OUTSIDE RECORDS SUMMARY | 2025-02-21 13:08 | XMS_ITS | Encounter Summary ---
Author Organization [facility] Address [address] [place] [address] Phone Care Team Providers Care Digital Printer Name Role Phone Marcela Neal DO Primary Care Provider [phone] Encounter Details Date Type Department Care Team (Late st Contact Info) Description 03/08/2014 Documentation [facility] [place] [address] [place] [address] Family Medicine, Physician [address] [place], [place] [phone] Social History Tobacco Use Types Packs/Day Years [...] on filedocumented in this encounter Care Teams Digital Printer Relationship Specialty Start Date End Date Marcela Neal DO [address] [place] [address] PCP - General 12/31/16 08/04/22 documented as of this encounter
--- OUTSIDE RECORDS SUMMARY | 2025-02-21 13:08 | XMS_ITS | Encounter Summary ---
Author Organization [facility] Address [address] [place] [address] Phone Care Team Providers Care Stereoplotter Operator Name Role Phone Marcela Neal DO Primary Care Provider [phone] Encounter Details Date Type Department Care Team (Late st Contact Info) Description 08/28/2012 Documentation [facility] [place] Family Medicine [address] [place] [address] Family Medicine, Physician [address] [place], [place] [phone] Social History Tobacco Use Types Packs/Day Years [...] on filedocumented in this encounter Care Teams Stereoplotter Operator Relationship Specialty Start Date End Date Marcela Nael DO [address] [place] [address] PCP - General 12/31/16 08/04/22 documented as of this encounter
--- OUTSIDE RECORDS SUMMARY | 2025-02-21 13:08 | XMS_ITS | Encounter Summary ---
Author Organization [facility] Address [address] [place] [address] Phone Care Team Providers Care Floor Covering Printer Assistant Name Role Phone Marcela Neal DO Primary Care Provider Encounter Details Date Type Department Care Team (Late st Contact Info) Description 04/30/2013 Documentation [facility] [place] Family Medicine [address] [place] [address] Family Medicine, Physician [address] [place], [place] [phone] Social History Tobacco Use Types Packs/Day Years [...] on filedocumented in this encounter Care Teams Floor Covering Printer Assistant Relationship Specialty Start Date End Date Marcela Neal DO [address] [place] [address] PCP - General 12/31/16 08/04/22 documented as of this encounter
--- OUTSIDE RECORDS SUMMARY | 2025-02-21 13:08 | XMS_ITS | Encounter Summary ---
Author Organization [facility] Address [address] [place] [address] Phone Care Team Providers Care Vp Software Support Name Role Phone Marcela Neal DO Primary Care Provider [phone] Encounter Details Date Type Department Care Team (Late st Contact Info) Description 03/21/2013 Documentation [facility] [place] [address] [place] [address] Family Medicine, Physician [address] [place], [place] [phone] Social History Tobacco Use Types Packs/Day Years [...] on filedocumented in this encounter Care Teams Vp Software Support Relationship Specialty Start Date End Date Marcela Neal DO [address] [place] [address] PCP - General 12/31/16 08/04/22 documented as of this encounter
--- OUTSIDE RECORDS SUMMARY | 2025-02-21 13:08 | XMS_ITS | Encounter Summary ---
Author Organization [facility] Address [address] [place] [address] Phone Care Team Providers Care Lab Instructor Name Role Phone Marcela Neal DO Primary Care Provider [phone] Encounter Details Date Type Department Care Team (Late st Contact Info) Description 07/19/2014 Documentation [facility] [place] [address] [place] [address] Family Medicine, Physician [address] [place], [place] [phone] Social History Tobacco Use Types Packs/Day Years [...] on filedocumented in this encounter Care Teams Lab Instructor Relationship Specialty Start Date End Date Marcela Neal DO [address] [place] [address] PCP - General 12/31/16 08/04/22 documented as of this encounter
--- OUTSIDE RECORDS SUMMARY | 2025-02-21 13:08 | XMS_ITS | Encounter Summary ---
Author Organization [facility] Address [address] [place] [address] Phone Care Team Providers Care Manager Metal Name Role Phone Marcela Neal DO Primary Care Provider [phone] Encounter Details Date Type Department Care Team (Late st Contact Info) Description 09/01/2011 Documentation [facility] [address] [place] [address] Family Medicine, Physician [address] [place], [place] [phone] Social History Tobacco Use Types Packs/Day Years [...] filedocumented in this encounter Care Teams Manager Metal Relationship Specialty Start Date End Date Marcela Neal DO [address] [place] [address] PCP - General 12/31/16 08/04/22 documented as of this encounter
--- OUTSIDE RECORDS SUMMARY | 2025-02-21 13:08 | XMS_ITS | Encounter Summary ---
Author Organization [facility] Address [address] [place] [address] Phone Care Team Providers Care Rotor Plate Washer Name Role Phone Marcela Neal DO Primary Care Provider [phone] Encounter Details Date Type Department Care Team (Late st Contact Info) Description 09/25/2013 Documentation [facility] [place] [address] [place] [address] Family Medicine, Physician [address] [place], [place] [phone] Social History Tobacco Use Types Packs/Day Years [...] on filedocumented in this encounter Care Teams Rotor Plate Washer Relationship Specialty Start Date End Date Marcela Neal DO [address] [place] [address] PCP - General 12/31/16 08/04/22 documented as of this encounter
--- OUTSIDE RECORDS SUMMARY | 2025-02-21 13:08 | XMS_ITS | Clinical Summary ---
Author Organization [facility] [address] [facility] Address [address] [place] [address] Phone Care Team Providers Care Manager Strategy Name Role Phone Luca Nguyen MD Primary Care Pr ovider Allergies Active Allergy Reactions Criticality Noted Date Comments Flavoring Agent (Bulk) 08/18/2015 Medroxyprogesterone 07/29/2022 Medroxyprogesterone Acetate 02/29/20 23 Pumpkin Seed Oil 06/28/2022 Shellfish Derived Rash,Wheezing 08/18/2015 Diffuse rashes with shortness of breath with lobster only Medications levonorgestreL (Liletta) 20.4 mcg/24 hr (8 yrs) 52 mg intrauterine device IUD by intrauterine route. Active busPIRone (BUSPAR) 5 mg tabletIndication s:Anxiety disorder with panic attacks Take 1 tablet (5 mg total) by mouth 2 (two) times a day. 180 each 1 01/26/20 25 026 Active busPIRone (BUSPAR) 5 mg tabletIndication s:Anxiety disorder with panic attacks Take 1 tablet (5 mg total) by mouth 2 (two) times a day. 60 each 01/15/20 25 025 Discontinu ed(Reorder ) cyclobenzaprine (FLEXERIL) 5 mg tabletIndication s:Cervicalgia Take 1 tablet (5 mg total) by mouth at bedtime for 7 days. 7 tablet 01/16/20 25 09/02/2 025 amoxicillin-clav ulanate (AUGMENTIN) 875-125 mg per tabletIndication s:Subacute maxillary sinusitis Take 1 tablet by mouth 2 (two) times a day for 10 days. 20 each 01/26/20 25 025 Active Problems Problem Noted Date Diagnosed Date Crohn's disease ([facility] V24, [facility] V28) 01/14 Assessment & Plan (01/14/2025 4:22 PM EDT): Currently not followed by GI. Referred Orders: Ambulatory referral to Gastroenterology; Future History of gestational diabetes 01/14/2025 Assessment & Plan (01/14/2025 4:22 PM EDT): Will check A1c Orders: Hemoglobin A1c; Future Migraine with aura and witho ut status migrainosus, not intractable 01/14/2025 Assessment & Plan (01/14/2025 4:22 PM EDT): Headaches seem consistent with migraines with auras. Will refer to neurology. Will obtain MRI of the brain Orders: Ambulatory referral to Neurology; Future MR Brain wo and w Contrast; Future Hidradenitis suppurativa 01/14/2025 Assessment & Plan (01/14/2025 4:22 PM EDT): Her recurrent folliculitis symptoms seem consistent with HS. She is referred to dermatology and provided with [facility] contact information Orders: Ambulatory referral to Dermatology; Future Anxiety disorder with panic attacks 01/14/2025 Assessment & Plan (01/14/2025 4:22 PM EDT): Will trial BuSpar. Her panic attacks are related to her symptoms which she is concerned about. Advised that we could do a short course of the medication until we get her symptoms under control/figure out the exact etiology of Her headaches and neuropathy. Orders: busPIRone (BUSPAR) 5 mg tablet; Take 1 tablet (5 mg total) by mouth 2 (two) times a day. Perennial allergic rhinitis 09/28/2017 Generalized abdominal pain 09/28/2017 Resolved Problems Problem Noted Date Diagnosed Date Resolved Date Syncope 09/28/2017 01/14/2025 Encounters Date Type Department Care Team Description 01/25/2025 Telephone Adult Medicine [address] [phone] Milka Mendoza RN 01/23/2025 4:23 PM EDT - 01/23/2025 11:59 PM EDT Hospital Encounter [facility] MRI [address] [place] [address] Migraine with aura and without status migrainosus, not intractable Discharge Disposition: Home or Self Care 01/14/2025 4:15 PM EDT - 01/14/2025 11:59 PM EDT Hospital Encounter [address] [phone] Cervicalgia Discharge Disposition: Home or Self Care 01/14/2025 3:30 PM EDT Office Visit Adult [address] [phone] Luca Nguyen MD Migraine with aura and without status migrainosus, not intractable (Primary Dx); Neuropathy; Cervicalgia; Anxiety disorder with panic attacks; Crohn's disease without complication, unspecified gastrointestinal tract location (CMS/HCC V24, CMS/HCC V28); Hidradenitis suppurativa; History of gestational diabetes 12/14/2024 1:45 PM EDT Office Visit [facility] [address] [phone] Donny Torres PA Acute non intractable tension-type headache (Primary Dx) 12/14/2024 Nurse Triage Adult [address] [phone] Luca Nguyen MD from Last 3 Months Immunizations Immunization Administration Dates Next Due Hepatitis A Adult [...] History Medical History Date Comments Crohn's colitis ([facility] V24 , [facility] V28) 2013 DX:Crohn's colitis ([facility]); CO MMENT: Still in process of being diagnosed Covid-19 07/20/2020 DX:COVID-19 Syncope 09/28/2017 Family History Medical History Relation Name Comments [...] drink = 0.6 oz pur e alcohol) Housing Instability Answer Date Recorde d Are you worried that in the next 2 months you may not have stable housing? No 01/14/2025 Food Access & Nutrition Answer Date Rec orded Do you have access to a vari ety of food including fruits and vegetables? Yes 01/14/2025 Health Literacy Answer Date Recorded How often do you need to hav e someone help you when you read instructions, pamphlets, or other written material from your doctor or pharmacy? Never 01/14/2025 Caregiver: How often do you need to have someone help you when you read instructions, pamphlets, or other written material from your doctor or pharmacy? Not on file 01/14/2025 Financial Risk Answer Date Recorded How hard is it for you to pa y for the very basics like food, housing, medical care, and air conditioning / heating? Not very hard 01/14/2025 Transportation Answer Date Recorded Has the lack of transportati on kept you from meetings, work, or from getting things needed for daily living? No Has the lack of transportati on kept you from medical appointments or from getting medications? No 01/14/2025 Social Isolation Answer Date Recorded How often do you feel lonely or isolated from th ose around you? Never 01/14/2025 Food Risk Answer Date Recorded Within the past 12 months we worried whether our food would run out before we got money to buy more. Never true 01/14/2025 Within the past 12 months th e food we bought just didn't last and we didn't have money to get more. Never true 01/14/2025 Dependent Care Answer Date Recorded Do you need help finding or paying for care for your loved ones. For example, children's aide or elderly care for an older adult? No 01/14/2025 Education Answer Date Recorded Do you think completing more education or training, like finishing a GED, going to college, or learning a trade, would be helpful for you? N/A 01/14/2025 Employment and Income Answer Date Recor ded During the last four weeks, have you been actively looking for work? No 01/14/2025 Living Situation Answer Date Recorded What is your living situation? Unrecognized valu e 01/14/2025 Comments No Sex and Gender Information Value Date Recorded Sex Assigned at Not on file Legal Sex Female 2:52 PM EST Gender Identity Not on file Sexual Orientation Not on file Obstetrics History Last Filed Vital Signs Vital Sign Reading Time Taken Comments Blood Pressure 110/72 01/14/2025 3:24 PM EDT Pulse 69 01/14/2025 3:24 PM EDT Temperature 36.8 C (98.3 F) 01/14/2025 3:24 PM EDT Respiratory Rate 18 01/14/2025 3:24 PM EDT Oxygen Saturation 98% 12/14/2024 1:30 PM EDT Inhaled Oxygen Concentration - - Weight 68 kg (150 lb) 01/14/2025 3:24 PM EDT Height 154.9 cm (5' 1 ) 01/14/2025 3:24 PM EDT Body Mass Index 28.34 01/14/2025 3:24 PM EDT Plan of Treatment Upcoming Encounters Date Type Department Care Team (Late st Contact Info) Description 05/08/2025 3:00 PM EST Consult Gastroenterology - [place] [address] [facility] [address] [facility] [address] [place] [id number] Ppeper Martin NP [address] [facility] [address] [place] [address] 05/10/2025 8:30 AM EST Telemedicine [facility] [place] [address] [facility] [address] [place] [address] Marlo Vasquez MD [address] [place], [place] [phone] Health Maintenance Due Date Last Done Comments Hepatitis B Vaccines (3 of 3 - 3-dose series) 09/18/1996 07/24/1996, 02/20/1996 Pneumococcal Vaccine: Pediatrics (0 to 5 Years) and At-Risk Patients (6 to 49 Years) (1 of 2 - PCV) 12/18/2014 Cervical Cancer Screening: Pap Smear 11/28/2022 11/29/2019 COVID-19 Vaccine ( - season) 2025 06/20/2021, 05/30/2021 Influenza Vaccine (#1) 2025 9, 04/07/2016, 03/26/2004, Additional history exists Hypertension/CHF/CAD Annual BMP Blood Test 12/14/2025 12/14/2024, 12/03/2022 Social Influencers of Health Screening 01/14/2026 01/14/2025 Cholesterol Screening (Lipid Panel) 11/01/2028 11/02/2023 DTaP,Tdap,and Td Vaccines (9 - Td or Tdap) 02/05/2029 02/05/2019, 11/04/2015, 01/31/2008, Additional history exists RSV Immunization Adult Patients (1 - 1-dose 75+ series) 12/18/2070 Varicella Vaccines Aged Out 05/23/1996 No longer [...] 03/01/2019, 11/22, 01/10/1997 HIV Screening Completed 07/06/2022 Depression Screening Completed 01/14/2025 Meningococcal B Vaccine Aged Out No l onger eligible based on patient's age to complete this topic RSV Immunization Patients Under 20 months Aged Out No longer eligible based on patient's age to complete this topic Procedures Procedure Name Priority Date/Time Associated Diagnosis Comments MR BRAIN WO AND W CONTRAST Routine 01/23/2025 5:42 PM EDT Migraine with aura and without status migrainosus, not intractable VITAMIN B12 Routine 01/14/2025 4:38 PM EDT Neuropathy FERRITIN Routine 01/14/2025 4:38 PM EDT Neuropathy IRON AND TIBC Routine 01/14/2025 4:38 PM EDT Neuropathy VITAMIN D 25 HYDROXY Routine 01/14/2025 4:38 PM EDT Neuropathy CHRISTIANO IFA WITH TITER AND PATTERN Routine 01/14/2025 4:38 PM EDT Neuropathy CREATINE KINASE Routine 01/14/2025 4:38 PM EDT Neuropathy HEMOGLOBIN A1C Routine 01/14/2025 4:38 PM EDT Neuropathy History of gestational diabetes ANTI-DNA ANTIBODY, DOUBLE-STRANDED Routine 01/14/2025 4:38 PM EDT Neuropathy XR CERVICAL SPINE 4-5 VIEWS Routine 01/14/2025 4:26 PM EDT Cervicalgia CBC WITH AUTO DIFFERENTIAL Routine 12/14/2024 4:02 [...] intractable tension-type headache LIPID PANEL Routine 11/02/2023 HIV SCREENING Routine 07/06/2022 PAP SMEAR Routine 11/29/2019 HEPATITIS C SCREENING Routine 09/29/2017 from Last 3 Months or Most Recently Relevant to Health Maintenance Results * MR Brain wo and w Contrast (01/23/2025 5:42 PM EDT) Anatomical Region Laterality Modality Head and Neck Magnetic Resonan ce 01/24/2025 5:18 PM EDT Impressions 01/24/2025 7:30 PM EDT Normal brain MRI without and with contrast. Left maxillary sinusitis. -------- FINAL REPORT -------- Dictated By: JASON IVNSON Dictated Date: 01/24/2025 17:18 ET Assigned Physician: JASON VINSON Reviewed and Electronically Signed By: JASON VINSON Signed Date: 01/24/2025 19:30 ET Workstation ID: [id number] Transcribed By: Self Edit Transcribed Date: 01/24/2025 17:18 ET Narrative 01/24/2025 7:30 PM EDT PROCEDURE: Brain MRI INDICATION: Dizziness, headache TECHNIQUE: Multiplanar, multisequence MRI of the brain without and with contrast. 15 mL Dotarem injected intravenously without complication from a 15 mL vial. COMPARISON: No priors available. FINDINGS: No acute infarct, mass effect, or intracranial hemorrhage. Sella and foramen magnum are normal. Brain parenchyma is normal in signal. No abnormal intracranial enhancement or susceptibility artifact. Ventricles, sulci, and cisterns are normal in size and configuration. No hydrocephalus. Major intracranial arterial flow voids are normal. Major dural venous sinuses enhance normally with contrast. Scattered mucosal thickening seen throughout the sinuses. Mucosal thickening and fluid results in near-complete opacification of the left maxillary sinus. Mastoid air cells are clear. Orbits and skull base soft tissues are normal. Calvarium is normal. Procedure Note Jason Vinson MD - 01/24/2025 PROCEDURE: Brain MRI INDICATION: Dizziness, headache TECHNIQUE: Multiplanar, multisequence MRI of the brain without and withcontrast. 15 mL Dotarem injected intravenously without complication froma 15 mL vial. COMPARISON: No priors available. FINDINGS: No acute infarct, mass effect, or intracranial hemorrhage. Sella and foramen magnum are normal. Brain parenchyma is normal in signal. No abnormal intracranialenhancement or susceptibility artifact. Ventricles, sulci, and cisterns are normal in size and configuration. Nohydrocephalus. Major intracranial arterial flow voids are normal. Major dural venoussinuses enhance normally with contrast. Scattered mucosal thickening seen throughout the sinuses. Mucosalthickening and fluid results in near-complete opacification of the leftmaxillary sinus. Mastoid air cells are clear. Orbits and skull base soft tissues are normal. Calvarium is normal. IMPRESSION: Normal brain MRI without and with contrast. Left maxillary sinusitis. -------- FINAL REPORT -------- Dictated By: JASON VINSON Dictated Date: 01/24/2025 17:18 ET Assigned Physician: JASON VINSON Reviewed and Electronically Signed By: JASON VINSON Signed Date: 01/24/2025 19:30 ET Workstation ID: [id number] Transcribed By: Self Edit Transcribed Date: 01/24/2025 17:18 ET Luca Nguyen MD IMG MRI PROCEDUR ES Final Result * CHRISTIANO IFA with titer and pattern (01/14/2025 4:38 PM EDT) CHRISTIANO Negative Negative 01/16/2025 6:56 AM EDT [facility] Comment:CHRISTIANO performed by ind irect immunofluorescence (IFA) using HEp-2 substrate. Blood Venous blood specimen / Unknown Venipuncture / Unknown 01/14/2025 4:38 PM EDT 01/14/2025 4:38 PM EDT Luca Nguyen MD LAB BLOOD ORDERA BLES Final Result [facility] [address] [place] [address], [place] [phone] * Iron and TIBC (01/14/2025 4:38 PM EDT) Iron 95 40 - 150 mcg/dL LAB CHEMISTRY METHOD 01/14/2025 7:10 PM EDT [facility] TIBC 318 250 - 450 mcg/dL LAB CHEMISTRY METHOD 01/14/2025 7:10 PM EDT [facility] Iron Saturation 30 15 - 50 % LAB CHEMISTRY METHOD 01/14/2025 7:10 PM EDT [facility] Blood Venous blood specimen / Unknown Venipuncture / Unknown 01/14/2025 4:38 PM EDT 01/14/2025 4:38 PM EDT Luca Nguyen MD LAB BLOOD ORDERA BLES Final Result Performing Organization Address City/[facility]/ZIP Co de Phone Number [facility] [address] [place] [address], [place] [phone] * DNA antibody, double-stranded (01/14/2025 4:38 PM EDT) [facility] Anti-DNA Double Stranded Antibody Negative Negative LAB CHEMISTRY METHOD 01/20/2025 10:25 AM EDT [facility] ds DNA Ab 25 <=200 I Unit/mL LAB CHEMISTRY METHOD 01/20/2025 10:25 AM EDT [facility] Blood Venous blood specimen / Unknown Venipuncture / Unknown 01/14/2025 4:38 PM EDT 01/14/2025 4:38 PM EDT Luca Nguyen MD LAB BLOOD ORDERA BLES Final Result Performing Organization Address [facility]/ZIP Co de Phone Number [facility] [address] [place] [address], [place] [phone] * Vitamin D 25 hydroxy (01/14/2025 4:38 PM EDT) [facility] Vit D, 25-Hydroxy 36.9 30.0 - 80.0 ng/mL LAB CHEMISTRY METHOD 01/14/2025 7:29 PM EDT [facility] Blood Venous blood specimen / Unknown Venipuncture / Unknown 01/14/2025 4:38 PM EDT 01/14/2025 4:38 PM EDT Luca Nguyen MD LAB BLOOD ORDERA BLES Final Result Performing Organization Address City/[facility]/ZIP Co de Phone Number [facility] [address] [place] [address], [place] [phone] * Hemoglobin A1c (01/14/2025 4:38 PM EDT) [facility] Hemoglobin A1C 5.5 <6.5 % LAB CHEMISTRY METHOD 01/14/2025 9:57 PM EDT [facility] Mean Bld Glu Estim. 111 mg/dL LAB CHEMISTRY METHOD 01/14/2025 9:57 PM EDT [facility] Blood Venous blood specimen / Unknown Venipuncture / Unknown 01/14/2025 4:38 PM EDT 01/14/2025 4:38 PM EDT Luca Nguyen MD LAB BLOOD ORDERA BLES Final Result [facility] [address] [place] [address], [place] [phone] * Ferritin (01/14/2025 4:38 PM EDT) [facility] Ferritin 34 8 - 252 ng/mL LAB CHEMISTRY METHOD 01/14/2025 7:10 PM EDT [facility] Blood Venous blood specimen / Unknown Venipuncture / Unknown 01/14/2025 4:38 PM EDT 01/14/2025 4:38 PM EDT Luca Nguyen MD LAB BLOOD ORDERA BLES Final Result [facility] [address] [place] [address], [place] [phone] * Vitamin B12 (01/14/2025 4:38 PM EDT) [facility] Vitamin B-12 732 250 - 900 pcg/mL LAB CHEMISTRY METHOD 01/14/2025 7:10 PM EDT [facility] Blood Venous blood specimen / Unknown Venipuncture / Unknown 01/14/2025 4:38 PM EDT 01/14/2025 4:38 PM EDT Luca Nguyen MD LAB BLOOD ORDERA BLES Final Result Performing Organization Address [facility]/ZIP Co de Phone Number [facility] [address] [place] [address], [place] [phone] * Creatine kinase (01/14/2025 4:38 PM EDT) Total CK 74 22 - 269 unit/L LAB CHEMISTRY METHOD 01/14/2025 6:46 PM EDT [facility] Blood Venous blood specimen / Unknown Venipuncture / Unknown 01/14/2025 4:38 PM EDT 01/14/2025 4:38 PM EDT Luca Nguyen MD LAB BLOOD ORDERA BLES Final Result Performing Organization Address [facility] de Phone Number [facility] [address] [place] [address], [place] [phone] * XR Cervical Spine 4-5 Views (01/14/2025 4:26 PM EDT) Anatomical Region Laterality Modality Spine, C-spine Radiographic Robyn ging 01/14/2025 8:02 PM EDT Impressions 01/14/2025 8:05 PM EDT Straightening of the normal cervical lordosis which can be positional or secondary to muscle spasm. No appreciable degenerative changes. POS - [id number] -------- FINAL REPORT -------- Dictated By: Caro Sanford Dictated Date: 01/14/2025 20:02 ET Assigned Physician: Caro Sanford Reviewed and Electronically Signed By: Caro Sanford Signed Date: 01/14/2025 20:05 ET Workstation ID: [id number] Transcribed By: Self Edit Transcribed Date: 01/14/2025 20:02 ET Narrative 01/14/2025 8:05 PM EDT EXAM: Cervical spine x-ray HISTORY: Cervicalgia. No known trauma. COMPARISON: None FINDINGS: 4 views performed. Cervical spine is visualized through C7 on the lateral projection. No compression deformities. Straightening of the normal cervical lordosis. Intervertebral disc spaces are maintained. No significant neural foraminal encroachment. Atlantoaxial distance is within normal limits. No abnormal thickening of the prevertebral soft tissues. Procedure Note Caro Sanford MD - 01/14/2025 EXAM: Cervical spine x-ray HISTORY: Cervicalgia. No known trauma. COMPARISON: None FINDINGS: 4 views performed. Cervical spine is visualized through C7 on the lateral projection. Nocompression deformities. Straightening of the normal cervical lordosis. Intervertebral disc spaces are maintained. No significant neural foraminalencroachment. Atlantoaxial distance is within normal limits. No abnormal thickening ofthe prevertebral soft tissues. IMPRESSION: Straightening of the normal cervical lordosis which can be positional orsecondary to muscle spasm. No appreciable degenerative changes. POS - [id number] -------- FINAL REPORT -------- Dictated By: Caro Sanford Dictated Date: 01/14/2025 20:02 ET Assigned Physician: Caro Sanford Reviewed and Electronically Signed By: Caro Sanford Signed Date: 01/14/2025 20:05 ET Workstation ID: [id number] Transcribed By: Self Edit Transcribed Date: 01/14/2025 20:02 ET Luca Nguyen MD IMG XR PROCEDURE S Final Result * Thyroid stimulating hormone with reflex to free t4 and free t3 (12/14/2024 4:02 PM EDT) TSH 1.18 0.40 - 4.00 mcIU/mL LAB CHEMISTRY METHOD 12/14/2024 7:16 PM EDT [facility] ([facility]) [facility] Blood Venous blood specimen / Unknown Venipuncture / Unknown 12/14/2024 4:02 PM EDT 12/14/2024 4:02 PM EDT Donny STONE LAB BLOOD ORDERABLES Final Result [facility] [address] [place] [address], * (ABNORMAL) CBC auto differential (12/14/2024 4:02 PM EDT) WBC 9.1 4.8 - 10.8 K/mcL LAB HEMETOLOGY METHOD 12/14/2024 6:27 PM EDT [facility] RBC 4.40 3.80 - 4.80 M/mcL LAB HEMETOLOGY METHOD 12/14/2024 6:27 PM EDT [facility] Hemoglobin 12.8 11.5 - 16.0 g/dL LAB HEMETOLOGY METHOD 12/14/2024 6:27 PM EDT [facility] Hematocrit 38.1 35.0 - 47.0 % LAB HEMETOLOGY METHOD 12/14/2024 6:27 PM EDT [facility] MCV 87.4 79.0 - 98.0 FL LAB HEMETOLOGY METHOD 12/14/2024 6:27 PM EDT [facility] MCH 29.4 27.0 - 32.0 pcg LAB HEMETOLOGY METHOD 12/14/2024 6:27 PM EDT [facility] MCHC 33.6 32.0 - 37.0 g/dL LAB HEMETOLOGY METHOD 12/14/2024 6:27 PM EDT [facility] RDW 12.2 11.0 - 15.0 % LAB HEMETOLOGY METHOD 12/14/2024 6:27 PM EDT [facility] Platelets 272 130 - 400 K/mcL LAB HEMETOLOGY METHOD 12/14/2024 6:27 PM EDT [facility] MPV 10.4 7.0 - 11.0 FL LAB HEMETOLOGY [facility] NR[facility] 0.0 <1.0 % LAB HEMETOLOGY METHOD 12/14/2024 6:[address] [facility] NRBC Absolute 0.00 <0.10 K/mcL LAB HEMETOLOGY METHOD 12/14/2024 6:[address] [facility] Neutrophils Relative 80.2 % LAB HEMETOLOGY METHOD 12/14/2024 6:[address] [facility] Lymphocytes Relative 14.7 % LAB HEMETOLOGY METHOD 12/14/2024 6:[address] [facility] Monocytes Relative 4.1 % LAB HEMETOLOGY METHOD 12/14/2024 6:[address] [facility] Eosinophils Relative 0.3 % LAB HEMETOLOGY METHOD 12/14/2024 6:[address] [facility] Basophils Relative 0.3 % LAB HEMETOLOGY METHOD 12/14/2024 6:[address] [facility] Immature Granulocytes Relative 0.4 % LAB HEMETOLOGY METHOD 12/14/2024 6:[address] [facility] Neutrophils Absolute 7.32(H) 1.50 - 7.00 K/mcL LAB HEMETOLOGY METHOD 12/14/2024 6:[address] [facility] Lymphocytes Absolute 1.34 1.00 - 5.00 K/mcL LAB HEMETOLOGY METHOD 12/14/2024 6:[address] [facility] Monocytes Absolute 0.37 0.20 - 1.00 K/mcL LAB HEMETOLOGY METHOD 12/14/2024 6:[address] [facility] Eosinophils Absolute 0.03 0.00 - 0.50 K/mcL LAB HEMETOLOGY METHOD 12/14/2024 6:[address] [facility] Basophils Absolute 0.03 0.00 - 0.20 K/mcL LAB HEMETOLOGY METHOD 12/14/2024 6:27 PM EDT [facility] Immature Granulocytes Absolute 0.04(H) 0.00 - 0.03 K/mcL LAB HEMETOLOGY METHOD 12/14/2024 6:27 PM EDT [facility] Blood Venous blood specimen / Unknown Venipuncture / Unknown 12/14/2024 4:02 PM EDT 12/14/2024 4:02 PM EDT Donny STONE LAB BLOOD ORDERABLES Final Result [facility] [address] [place] [address], [place] [phone] * Methylmalonic acid, serum (12/14/2024 4:02 PM EDT) Methylmalonic Acid 0.16 <0.40 umol/L 12/18/2024 9:01 AM EDT [facility] Comment: If applicable, any drug confirmation testing reported here was developed and the performance characteristics determined by [facility]. This confirmation testing has not been cleared or approved by the FDA. The laboratory is regulated under CLIA as qualified to perform high-complexity testing. This test is used for patient testing purposes. It should not be regarded as investigational or for research. Test performed at [facility], [address] , [place] [address] Renetta Hair MD, PhD - Card Hand Blood Venous blood specimen / Unknown Venipuncture / Unknown 12/14/2024 4:02 PM EDT 12/14/2024 4:02 PM EDT Donny STONE LAB BLOOD ORDERABLES Final Result [facility] [address] [place] [address] * Vitamin B6 (12/14/2024 4:02 PM EDT) Vitamin B6 (Pyridoxine) Level 13 5 - 50 ug/L 12/18/2024 10:52 AM EDT [facility] Comment: This test was developed and the performance characteristics determined by [facility]. It has not been cleared or approved by the FDA. The laboratory is regulated under CLIA as qualified to perform high-complexity testing. This test is used for patient testing purposes. It should not be regarded as investigational or for research. Test performed at [facility], [address] , [place] [address] Renetta Hair MD, PhD - Card Hand Blood Venous blood specimen / Unknown Venipuncture / Unknown 12/14/2024 4:02 PM EDT 12/14/2024 4:02 PM EDT Donny STONE LAB BLOOD ORDERABLES Final Result Performing Organization Address City/[facility]/ZIP Co de Phone Number [facility] [address] [place] [address] * Magnesium (12/14/2024 4:02 PM EDT) [facility] Magnesium 2.0 1.9 - 2.6 mg/dL LAB CHEMISTRY METHOD 12/14/2024 6:45 PM EDT [facility] Blood Venous blood specimen / Unknown Venipuncture / Unknown 12/14/2024 4:02 PM EDT 12/14/2024 4:02 PM EDT Donny STONE LAB BLOOD ORDERABLES Final Result [facility] [address] [place] [address], * (ABNORMAL) Comprehensive metabolic panel (12/14/2024 4:02 PM EDT) [facility] Sodium 138 133 - 145 mmol/L LAB CHEMISTRY METHOD 12/14/2024 6:45 PM EDT [facility] Potassium 3.9 3.5 - 5.5 mmol/L LAB CHEMISTRY METHOD 12/14/2024 6:[address] [facility] Chloride 108 96 - 110 mmol/L LAB CHEMISTRY METHOD 12/14/2024 6:[address] [facility] CO2 25 21 - 32 mmol/L LAB CHEMISTRY METHOD 12/14/2024 6:[address] [facility] Anion Gap 5 3 - 11 LAB CHEMISTRY METHOD 12/14/2024 6:[address] [facility] Glucose 103(H) 70 - 100 mg/dL LAB CHEMISTRY METHOD 12/14/2024 6:[address] [facility] BUN 11 5 - 25 mg/dL LAB CHEMISTRY METHOD 12/14/2024 6:[address] [facility] Creatinine 0.75 0.50 - 1.10 mg/dL LAB CHEMISTRY METHOD 12/14/2024 6:[address] [facility] eGFR 111 >=60 mL/min/1. 73m2 LAB CHEMISTRY METHOD 12/14/2024 6:[address] [facility] Comment:Calculation based on the Chronic Kidney Disease Epidemiology Collaboration (CKD-EPI) equation refit without adjustment for race. BUN/Creatinine Ratio 14.7 LAB CHEMISTRY METHOD 12/14/2024 6:[address] [facility] Calcium 9.4 8.5 - 10.5 mg/dL LAB CHEMISTRY METHOD 12/14/2024 6:[address] [facility] AST (SGOT) 16 10 - 42 unit/L LAB CHEMISTRY METHOD 12/14/2024 6:[address] [facility] ALT (SGPT) 21 10 - 60 unit/L LAB CHEMISTRY METHOD 12/14/2024 6:[address] [facility] Alkaline Phosphatase 73 42 - 121 unit/L LAB CHEMISTRY METHOD 12/14/2024 6:[address] [facility] Total Protein 7.5 6.0 - 8.0 g/dL LAB CHEMISTRY METHOD 12/14/2024 6:45 PM EDT [facility] Albumin 4.3 3.2 - 5.0 g/dL LAB CHEMISTRY METHOD 12/14/2024 6:45 PM EDT [facility] Total Bilirubin 0.6 0.0 - 1.4 mg/dL LAB CHEMISTRY METHOD 12/14/2024 6:45 PM EDT [facility] Blood Venous blood specimen / Unknown Venipuncture / Unknown 12/14/2024 4:02 PM EDT 12/14/2024 4:02 PM EDT Donny STONE LAB BLOOD ORDERABLES Final Result [facility] [address] [place] [address], [place] [phone] * Lipid panel (11/02/2023) [facility] LDL/HDL Ratio 2 0 - 4 Triglycerides 53 0 - 150 mg/dL Cholesterol 131 0 - 200 mg/dL HDL 58 >=40 mg/dL LDL Cholesterol 63 0 - 100 mg/dL Blood Venous blood specimen / Unknown Result [facility] Provider LAB BLOOD ORDERABLES Alexa l Result * HIV Screening (07/06/2022) [facility] HIV Screening Abstracted Result [facility] Historical Provider HEALTH MAINTENANCE Final Result * Pap Smear (11/29/2019) [facility] Pap smear No interpretation , abstracted Historical Provider HEALTH MAINTENANCE Final Result * Hepatitis C Screening (09/29/2017) [facility] Hepatitis C Screening Abstracted Historical Provider HEALTH MAINTENANCE Final Result from Last 3 Months or Most Recently Relevant to Health Maintenance Insurance [facility] [employer] [facility] [facility] Care Teams Manager Strategy Relationship Specialty Start Date End Date Luca Nguyen MD [address] [place] [phone] PCP - General 12/24/22
--- OUTSIDE RECORDS SUMMARY | 2025-02-21 13:08 | XMS_ITS | Clinical Summary ---
Author Organization [facility] Address [address] [place] [phone] Phone Care Team Providers Care General Matcher Name Role Phone Pcp, Unknown Primary Care [...] file Medical Devices Not on file [place] [address] [place] [address] [place] [address] [employer] [facility] [place] [address] [place] [address] [place] [address] [place] [address] [place] [address] [facility] [place] [place] [address] ACO Care Teams General Matcher Relationship Specialty Start Date End Date Pcp, Unknown PCP - General 06/28/22 Additional Source Comments The information contained in this document represents components of the legal health record. It is not the complete legal health record.[facility]
--- OUTSIDE RECORDS SUMMARY | 2025-02-21 13:08 | XMS_ITS | Encounter Summary ---
Author Organization [facility] Address [address] [place] [phone] Phone Care Team Providers Care Process Controller Name Role Phone Marcela Neal DO Primary Care Provider [phone] Encounter Details Date Type Department Care Team (Late st Contact Info) Description 02/23/2010 Documentation [facility] Family Medicine [address] [place] [address] Family Medicine, Physician [address] [place], [place] [phone] Social History Tobacco Use Types Packs/Day Years [...] on filedocumented in this encounter Care Teams Process Controller Relationship Specialty Start Date End Date Marcela Neal DO [address] [place] [id number] PCP - General 12/31/16 08/04/22 documented as of this encounter
--- OUTSIDE RECORDS SUMMARY | 2025-02-21 13:08 | XMS_ITS | Encounter Summary ---
Author Organization [facility] Address [address] [place] [address] Phone Care Team Providers Care Carrot Harvester Name Role Phone Marcela Neal DO Primary Care Provider [phone] Encounter Details Date Type Department Care Team (Late st Contact Info) Description 06/20/2013 Documentation [facility] Family Medicine [address] [place] [address] Family Medicine, Physician [address] [place], [place] [phone] Social History Tobacco Use Types Packs/Day Years [...] on filedocumented in this encounter Care Teams Carrot Harvester Relationship Specialty Start Date End Date Marcela Neal DO [address] [place] [phone] PCP - General 12/31/16 08/04/22 documented as of this encounter
--- OUTSIDE RECORDS SUMMARY | 2025-02-21 13:08 | XMS_ITS | Encounter Summary ---
Author Organization [facility] Address [address] [place] [phone] Phone Care Team Providers Care Fur Repairer Name Role Phone Marcela Neal DO Primary Care Provider [phone] Encounter Details Date Type Department Care Team (Late st Contact Info) Description 09/21/2013 Documentation [facility] Family Medicine [address] [place] [address] Family Medicine, Physician [address] [place], [place] [phone] Social History Tobacco Use Types Packs/Day Years [...] on filedocumented in this encounter Care Teams Fur Repairer Relationship Specialty Start Date End Date Marcela Neal DO [address] [place] [phone] PCP - General 12/31/16 08/04/22 documented as of this encounter
== END 2025-02-21 11:33 | disposition home or self-care (01) ==
LOC: HO.HOS 11:13
PROVIDERS: Visit Provider Physical Medicine & Rehabilitation
DX: M79.18 Myalgia, other site (principal)
CPT/HCPCS: 99213

== ENCOUNTER → 2025-02-21 11:12 | Outpatient (BNVA) | payer OTHER, SELFPAY | PROVIDERS: Visit Provider Physical Medicine & Rehabilitation | DX: M79.18 Myalgia, other site (principal) | CPT/HCPCS: 99212 ==